=== PATIENT | male | born 1960 | race Caucasian/White ===

== ENCOUNTER → 2023-03-16 14:47 | Outpatient (REF) | payer OTHER, SELFPAY ==
--- NOTE | 2023-03-16 14:50 | CA_ITS ---
Transthoracic Echocardiogram Patient (Last, First, Middle): Jan Looney, Gender: Male Date of : 1960 Age: 62 Procedure Date: 03/16/2023 Procedure Type: Transthoracic Echocardiogram Location: OP Height: 187.96 cm Weight: 124.74 kg BSA: 2.49 m2 Heart Rate: 81 bpm BP: 130 / 90 mmHg Attractions Associate: PONCHO Referring MD: Torres Mcguire MD Symptoms: VIGIL Study Quality: Fair/Contrast ECG Rhythm: Sinus Conclusions: - The left ventricular systolic function is normal. The visually estimated ejection fraction is between 65-70%. - There is severely increased left ventricular wall thickness. - No obvious valvular pathology seen on this study. Findings Procedure Information Contrast agent, definity, is being given per protocol without apparent complications. Left Ventricle Normal left ventricular cavity size. There is severely increased left ventricular wall thickness. The left ventricular systolic function is normal. The visually estimated ejection fraction is between 65-70%. There is no evidence of regional wall motion abnormalities. Diastolic function is normal for age. Right Ventricle Mildly increased right ventricular cavity size. There is normal right ventricular systolic function. Atria The left atrium is mildly dilated. The right atrium is normal in size. Aortic Valve The aortic valve was not well visualized. There is mild calcification of the aortic valve. There is no aortic valve stenosis. There is no aortic valve regurgitation. Mitral Valve The mitral valve appears normal. There is trace mitral valve regurgitation. There is no mitral valve stenosis. Pulmonic Valve The pulmonic valve is likely normal. Tricuspid Valve Normal tricuspid valve structure. There is trace tricuspid valve regurgitation. Tricuspid regurgitation envelope is inadequate for calculation of right ventricular systolic pressure. Great Vessels The asc aorta is normal in size. Venous The inferior vena cava is mildly dilated and collapses greater than 50% with inspiration. Pericardium/Pleural There is no evidence of pericardial effusion. Prior Study Comparison Changes noted compared to prior study dated: 05/07/2015. Progression of LVH. Recommendations, Care & Conclusions No obvious valvular pathology seen on this study. Measurements 2D Linear Measurements IVSd: 1.22 0.6-0.9/0.6-1.0 cm LVIDd: 5.63 3.9-5.3/4.2-5.9 cm LVIDd Index: 2.26 2.4-3.2/2.2-3.1 cm/m2 LVIDs: 4.10 2.0-3.6 cm LVPWd: 1.02 0.7-1.1 cm LA Diam: 4.70 2.7-3.8/3.0-4.0 cm LAIDs Index: 1.89 1.5-2.3 cm/m2 LV Mass: 321.35 67-162/88-224 g LV Mass Index: 129.06 43-95/49-115 g/m2 LVOT Diam: 2.10 3.0+(-)1.3 cm 2D Systolic Function EF 4C: 75.10 >55% EF 2C: 75.00 >55% EF BiP: 74.90 >55% Mitral Valve MV Pk E: 0.71 MV PK A: 0.46 MV Decel Time: 141.00 E/A: 1.60 E'Lateral: 10.30 E'Medial: 8.70 E/E' Med: 8.20 E/E' Lat: 6.90 PHT: 41.00 MVA PHT: 5.37 Decel Christian: 5.04 Aortic Valve AoV Pk Jozef: 1.22 AoV Mn Jozef: 0.98 AoV VTI: 0.24 AoV Pk Grad: 6.00 Aov Mn Grad: 4.00 ANURAG Cont.VTI: 2.85 LVOT LVOT Pk Jozef: 1.17 LVOT Mn Jozef: 0.84 LVOT VTI: 0.20 LVOT Pk Grad: 5.00 LVOT Mn Grad: 3.00 LVOT Diam: 2.10 LVOT Area: 3.46 Diastolic Function MV Pk E: 0.71 MV Pk A: 0.46 E/A: 1.60 E'Medial: 8.70 E/E' Med: 8.20 E' Laterial: 10.30 E/E' Lat: 6.90 Right Ventricle TAPSE (mm): 20.80 TVS' Jozef: 14.40 Tricuspid Valve RA Press: 8.00 Great Vessels Aorta Sinus of Valsalva: 3.50 2.0-3.5 cm Ao Asc: 3.50 2.1-3.4 cm Pulmonary Valve PV Pk Jozef: 0.80 Peak PV Grad: 3.00 Updated in Other Vendor System with Status of Final Huber Bill MD electronically signed on 03/17/2023 9:53:57 AM with status of Final
== END ==
LOC: HO.CARD 14:47
PROVIDERS: PCP Internal Medicine; Visit Provider Internal Medicine
DX: R06.09 Other forms of dyspnea (principal); R60.0 Localized edema
CPT/HCPCS: 93306; Q9957

== ENCOUNTER 2023-09-14 14:12 | Outpatient (REF) | payer OTHER, SELFPAY ==
[2023-09-14 15:07] LABS: Appearance Urine Clear; Color Urine Yellow; Glucose Urine UA Negative (Negative); Leukocyte Esterase Urine Negative (Negative); Nitrite Urine Negative (Negative); PH 6.5 (5.0-9.0); Specific Gravity - Urine <= 1.005 (1.005-1.025); Urine Blood Negative (Negative); Urine Ketones Negative (Negative); Urine Protein Negative (Neg-Trace)
[2023-09-15 10:24] LABS: Free Prostate Spec Ag <0.1 ng/mL; Percent Free Prostate Spec Ag UNABLE TO CALCULATE % (calc) (>25); Prostate Specific Ag Total 0.6 ng/mL (< OR = 4.0)
== END 2023-09-14 14:13 | disposition home or self-care (01) ==
LOC: HO.CHCLDS 14:12
PROVIDERS: Visit Provider Internal Medicine
DX: R30.0 Dysuria (principal)
CPT/HCPCS: 36415; 81003; 84154

== ENCOUNTER 2023-10-19 14:34 | Outpatient (REF) | payer OTHER, SELFPAY ==
[2023-10-19 17:37] LABS: MANUAL DIFF FLAG NO
[2023-10-19 17:45] LABS: Basophils Percent Auto 0.9 % (0-2); Eosinophils Absolute Auto 0.1 X10*3/uL (0.0-0.4); Eosinophils Percent Auto 2.6 % (0-4); Hematocrit 40.8 % (42.0-52.0); Hemoglobin 13.5 g/dl (14.0-18.0); Imm Gran Abs Auto 0.01 X10*3/uL (0.00-0.03); Imm Gran Pct Auto 0.2 % (0.0-0.4); Lymphocytes Absolute Auto 1.5 X10*3/uL (1.2-4.9); Lymphocytes Percent Auto 32.8 % (20-40); Mean Corpuscular HGB Conc 33.1 g/dl (31.0-36.0); Mean Corpuscular Hemoglobin 29.7 pg (27.0-33.0); Mean Corpuscular Volume 89.7 fL (80.0-98.0); Mean Platelet Volume 10.7 fL (9.4-12.4); Monocytes Absolute Auto 0.2 X10*3/uL (0.1-1.2); Monocytes Percent Auto 5.2 % (2-11); Neutrophils Absolute Auto 2.7 x10*3/uL (2.0-8.3); Neutrophils Percent Auto 58.3 % (45-73); Platelet Count 204 X10*3/uL (160-400); Red Blood Count 4.55 X10*6/uL (4.60-5.80); Red Cell Distribution Width 12.3 % (11.0-16.0); White Blood Count 4.6 X10*3/uL (4.8-10.8)
[2023-10-19 18:01] LABS: Alanine Aminotransferase 17 U/L (0-40); Albumin Level 4.2 g/dL (3.5-5.0); Alkaline Phosphatase 76 U/L (39-117); Anion Gap 10 (12-20); Aspartate Amino Transferase 18 U/L (5-37); Bilirubin Total 0.8 mg/dL (0.0-1.0); Blood Urea Nitrogen 16 mg/dL (9-16); Calcium 9.6 mg/dL (8.4-10.2); Carbon Dioxide 29 mmol/L (22-29); Chloride 106 mmol/L (96-108); Estimated Glomerular Filt Rate > 60; Glucose Random 92 mg/dL (60-115); Magnesium 2.4 mg/dL (1.6-2.6); Potassium 4.1 mmol/L (3.3-5.1); Sodium 141 mmol/L (135-145); Total Protein 7.2 g/dL (6.5-8.0)
[2023-10-19 18:17] LABS: TSH reflex Free T4 0.82 uIU/mL (0.32-4.0)
== END 2023-10-19 14:35 | disposition home or self-care (01) ==
LOC: HO.CHCLDS 14:34
PROVIDERS: Visit Provider Family Medicine
DX: R94.31 Abnormal electrocardiogram [ECG] [EKG] (principal)
CPT/HCPCS: 36415; 80053; 83735; 84443; 85025

== ENCOUNTER → 2023-11-03 09:41 | Outpatient (REF) | payer OTHER, SELFPAY | LOC: HO.CARD 09:41 | PROVIDERS: PCP Internal Medicine; Visit Provider Family Medicine | DX: R94.31 Abnormal electrocardiogram [ECG] [EKG] (principal); I49.3 Ventricular premature depolarization; I48.91 Unspecified atrial fibrillation | CPT/HCPCS: 93225 ==

== ENCOUNTER → 2023-11-03 09:47 | Outpatient (BNV) | payer OTHER, SELFPAY | PROVIDERS: PCP Internal Medicine; Visit Provider Internal Medicine Cardiovascular Disease | DX: I48.91 Unspecified atrial fibrillation (principal) | CPT/HCPCS: 93227 ==

== ENCOUNTER 2023-11-04 14:01 | Outpatient (REF) | payer OTHER, SELFPAY ==
--- NOTE | ~2023-11-04 | XR_ITS ---
EXAMINATION: XR CHEST CLINICAL INFORMATION: Shortness of breath COMPARISON: Chest x-ray on 04/14/2015 TECHNIQUE: 2 views of the chest were obtained. FINDINGS: vascularity. LUNGS: Asymmetric flame-shaped density is seen in medial border of right upper lobe, contiguous with right lateral superior mediastinum, measuring 2.0 cm in vertical height, 1.7 cm in width. No pneumothorax is seen. BONES: Bony skeleton is intact. There is marked asymmetric thickening of the right first rib. XR/XR chest 2V IMPRESSION: Asymmetric flame-shaped density is seen in the medial border of right upper lobe, contiguous with right lateral superior mediastinum, measuring 2.0 cm in vertical height, 1.7 cm in width. This could represent focal airspace disease or mass lesion. If clinically indicated, further evaluation with contrast-enhanced CT scan of chest is recommended.
== END 2023-11-04 14:02 | disposition home or self-care (01) ==
LOC: HO.XRAY 14:01
PROVIDERS: Visit Provider Internal Medicine
DX: Z13.89 Encounter for screening for other disorder (principal)
CPT/HCPCS: 71046

== ENCOUNTER → 2023-11-19 14:00 | Outpatient (REF) | payer OTHER, SELFPAY ==
--- NOTE | 2023-11-19 14:02 | CA_ITS ---
Transthoracic Echocardiogram Patient (Last, First, Middle): Jan Looney, Gender: Male Date of : 1960 Age: 63 Procedure Date: 11/19/2023 Procedure Type: Transthoracic Echocardiogram Location: OP Height: 187.96 cm Weight: 120.2 kg BSA: 2.45 m2 Heart Rate: bpm BP: 128 / 80 mmHg Residency Program Coordinator: Referring MD: Mer Umaña MD Symptoms: R94.31 ABN EKG Study Quality: Adequate w contrast ECG Rhythm: Sinus Conclusions: - The left ventricular systolic function is normal. The calculated ejection fraction is 56% by biplane method. - There is moderately increased left ventricular wall thickness. - The basal inferolateral segment is akinetic. - No obvious valvular pathology seen on this study. Findings Procedure Information Contrast agent, definity, is being given per protocol without apparent complications. Left Ventricle Normal left ventricular cavity size. There is moderately increased left ventricular wall thickness. The left ventricular systolic function is normal. The calculated ejection fraction is 56% by biplane method. There is evidence of regional wall motion abnormalities. Diastolic function is normal for age. Wall Motion Rest Echo Findings The basal inferolateral segment is akinetic. Right Ventricle Mildly increased right ventricular cavity size. There is normal right ventricular systolic function. Atria Both atria are normal in size. Aortic Valve The aortic valve was not well visualized. There is mild calcification of the aortic valve. There is no aortic valve stenosis. There is no aortic valve regurgitation. Mitral Valve The mitral valve appears normal. There is no mitral valve regurgitation. There is no mitral valve stenosis. Pulmonic Valve The pulmonic valve is likely normal. Tricuspid Valve Normal tricuspid valve structure. There is trace tricuspid valve regurgitation. There is no evidence of pulmonary hypertension. Great Vessels The asc aorta is normal in size. Venous The inferior vena cava is mildly dilated and collapses less than 50% with inspiration. Pericardium/Pleural There is no evidence of pericardial effusion. Prior Study Comparison No significant change compared to prior study dated: 03/16/2023. Images reviewed. Recommendations, Care & Conclusions No obvious valvular pathology seen on this study. Measurements 2D Linear Measurements IVSd: 1.46 0.6-0.9/0.6-1.0 cm LVIDd: 5.22 3.9-5.3/4.2-5.9 cm LVIDd Index: 2.13 2.4-3.2/2.2-3.1 cm/m2 LVIDs: 3.70 2.0-3.6 cm LVPWd: 1.47 0.7-1.1 cm LA Diam: 4.50 2.7-3.8/3.0-4.0 cm LAIDs Index: 1.84 1.5-2.3 cm/m2 LV Mass: 415.07 67-162/88-224 g LV Mass Index: 169.42 43-95/49-115 g/m2 LVOT Diam: 2.20 3.0+(-)1.3 cm 2D Systolic Function EF 4C: 66.50 >55% EF 2C: 40.20 >55% EF BiP: 55.50 >55% Mitral Valve MV Pk E: 0.71 MV PK A: 0.45 MV Decel Time: 150.00 E/A: 1.60 E'Lateral: 13.20 E'Medial: 6.09 E/E' Med: 11.60 E/E' Lat: 5.40 PHT: 44.00 MVA PHT: 5.00 Decel [place]: 4.70 Aortic Valve AoV Pk Jozef: 1.29 AoV Mn Jozef: 0.86 AoV VTI: 0.22 AoV Pk Grad: 7.00 Aov Mn Grad: 4.00 ANURAG Cont.VTI: 3.50 LVOT LVOT Pk Jozef: 1.25 LVOT Mn Jozef: 0.77 LVOT VTI: 0.20 LVOT Pk Grad: 6.00 LVOT Mn Grad: 3.00 LVOT Diam: 2.20 LVOT Area: 3.80 Diastolic Function MV Pk E: 0.71 MV Pk A: 0.45 E/A: 1.60 E'Medial: 6.09 E/E' Med: 11.60 E' Laterial: 13.20 E/E' Lat: 5.40 Right Ventricle TAPSE (mm): 28.10 TVS' Jozef: 12.60 Tricuspid Valve TR Pk Jozef: 1.94 TR Pk Grad: 15.00 RA Press: 8.00 RVSP: 23.00 Great Vessels Aorta Sinus of Valsalva: 3.20 2.0-3.5 cm Ao Asc: 3.00 2.1-3.4 cm Pulmonary Valve PV Pk Jozef: 1.02 Peak PV Grad: 4.00 Updated in Other Vendor System with Status of Final Huber Bill MD electronically signed on 11/20/2023 2:29:11 PM with status of Final
== END ==
LOC: HO.CARD 14:00
PROVIDERS: PCP Internal Medicine; Visit Provider Family Medicine
DX: R94.31 Abnormal electrocardiogram [ECG] [EKG] (principal)
CPT/HCPCS: 93306; Q9957

== ENCOUNTER → 2023-11-19 14:02 | Outpatient (BNV) | payer OTHER, SELFPAY | PROVIDERS: PCP Internal Medicine; Visit Provider Internal Medicine | DX: I35.8 Other nonrheumatic aortic valve disorders (principal); R94.31 Abnormal electrocardiogram [ECG] [EKG] | CPT/HCPCS: 93306 ==

== ENCOUNTER 2023-12-15 11:18 | Outpatient (REF) | payer OTHER, SELFPAY ==
[2023-12-15 14:46] LABS: Blood Urea Nitrogen 17 mg/dL (9-16); Estimated Glomerular Filt Rate > 60
== END 2023-12-15 11:19 | disposition home or self-care (01) ==
LOC: HO.CHCLDS 11:18
PROVIDERS: Visit Provider Internal Medicine
DX: C20 Malignant neoplasm of rectum (principal)
CPT/HCPCS: 36415; 82565; 84520

== ENCOUNTER 2024-01-26 13:36 | Outpatient (AMB) | payer OTHER, SELFPAY ==
[2024-01-26 14:14] VITALS: BP 136/74; PULSE 115; BMI 34.8
--- NOTE | 2024-01-26 14:14 | A.OFFVIS_ITS ---
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 Intake Note: NPV w/ EKG Pure Culture Operator Required: Yes Pure Culture Operator Language: Time Study Observer Name: Antonella [id number] Accompanied by: Self / Same As Patient Allergies No Known Allergies [No Known Allergies*] Allergy (Verified 01/26/24 14:15) Medication List - Last Reconciled 01/26/24 by Huber Bill MD acetaminophen ER (Tylenol 8 Hour) 650 mg PO Q12H aspirin 81 mg PO DAILY atorvastatin 20 mg PO DAILY diclofenac sodium 1% (Voltaren) 2 grams topical QID ergocalciferol (vitamin D2) 1 caps weekly morphine ER 60 mg PO BID omeprazole 40 mg PO DAILY oxycodone 10 mg PO TID PRN promethazine 25 mg PO Q4-6H PRN sennosides 8.6 mg PO BEDTIME sertraline (Zoloft) 50 mg PO DAILY HPI HPI Comments History of Present Illness Details Jan is here for consultation regarding palpitations. He states that for the last few months he has been noticing some heart fluttering. He denies any history of coronary disease myocardial infarction or cardiomyopathy. However, according to PCP note, a prior echocardiogram from 2018 had shown wall motion abnormalities in the inferior/lateral wall. Otherwise, patient himself denies any clear anginal-type symptoms. PFSH Surgical History H/O hemicolectomy Hx of colostomy Family History Mother HTN (hypertension) Social History Alcohol intake: never Review of Systems Const Denies chills, Denies daytime sleepiness, Denies fatigue, Denies fever(s), Denies frequent falls, Denies night sweats, Denies snoring, Denies weakness, Denies weight gain and Denies weight loss Eyes Denies loss of vision ENT Denies dizziness and Denies hearing loss Card Denies chest pain, Denies chest pain with activity, Denies syncope, Denies rapid heart rate, Denies edema, Denies claudication, Denies leg edema, Denies lightheadedness, Denies palpitations, Denies dyspnea, Denies dyspnea on exertion and Denies orthopnea Resp Denies cough, Denies excessive phlegm production, Denies dyspnea, Denies dyspnea on exertion, Denies snoring and Denies wheezing GI Denies abdominal pain, Denies hematochezia, Denies change in bowel habits, Denies change in stool character, Denies heartburn, Denies nausea and Denies vomiting Denies hematuria, Denies dysuria and Denies urinary frequency Musc Denies arthralgias, Denies muscle weakness, Denies numbness and Denies tingling Skin/Breast Denies nail changes and Denies rash Neuro Denies Abnormal speech present, Denies dizziness, Denies syncope, Denies frequent falls, Denies loss of vision, Denies memory loss, Denies numbness, Denies tingling and Denies weakness Psych Denies depression and Denies memory loss Endo Denies fatigue and Denies palpitations Aller/Immun Denies wheezing Physical Exam Vital Signs: Last Vital Signs Pulse 115 H 01/26/24 14:14 BP 136/74 01/26/24 14:14 BMI result Body Mass Index 34.8 Const General: comfortable and no acute distress Orientation/consciousness: patient oriented x3 HEENT Other: Unremarkable Head: Yes normal to inspection Neck Neck: Yes normal visual inspection Chest Chest palpation & inspection: normal inspection of the chest Resp Auscultation: clear to auscultation bilaterally Cardio Palpation: normal PMI Heart sounds: S1 normal heart sound present, S2 normal heart sound present, no gallops, no murmurs and no rubs GI Palpation (GI): Soft to palpation Back/Spine/Pelvis Other: unremarkable Skin General skin exam: no rashes or lesions noted Neuro General: patient oriented x3 Speech: No Abnormal speech present Extrem General: Yes normal to inspection Psych Mental Status: mental status grossly normal Office Procedures EKG Details: EKG shows probably atrial flutter at a rate of 115/Min. Atrial tachycardia is also possible. [id number], Complete Assessment & Plan Assessment & Plan (1) Atrial flutter with rapid ventricular response: Code(s): I48.92 - Unspecified atrial flutter Plan Per PCP note, inferior/lateral wall hypokinesis on echocardiogram from 2018. Not clear where that was performed. Currently, it seems that he is in atrial flutter with rapid rate. Less likely atrial tachycardia but still possible. In the EKG that has been faxed from PCP, again possible atrial flutter but difficult to see due to image quality. We can start him on some beta-blockers. Also start Eliquis. We will get an echocardiogram as well as a Holter monitor. Possibly cardioversion in the future. Plan discussed with patient using golf club head former and he agrees. Orders: Orders CA echo transthoracic complete Today I48.92 - Unspecified atrial flutter ECG 3 day holter monitor Today I48.92 - Unspecified atrial flutter, R00.2 - Palpitations Medications: New metoprolol succinate ER (Toprol XL) 50 mg PO DAILY 90 tabs 3RF 90 days I48.92 - Unspecified atrial flutter apixaban (Eliquis) 5 mg PO BID 180 tabs 3RF 90 days I48.92 - Unspecified atrial flutter Coding Level of Care Code New Pt Level 4 (31925) Diagnoses Atrial flutter with rapid ventricular response I48.92 CPT Codes EKG - CPT: 15829-[id number], Complete ([id number])
== END 2024-01-26 14:34 | disposition home or self-care (01) ==
PROVIDERS: PCP Internal Medicine; Visit Provider Internal Medicine
DX: I48.92 Unspecified atrial flutter (principal)
CPT/HCPCS: 93010; 99214

== ENCOUNTER → 2024-01-26 13:36 | Outpatient (BNVA) | payer OTHER, SELFPAY | PROVIDERS: PCP Internal Medicine; Visit Provider Internal Medicine | DX: R00.2 Palpitations (principal); I48.92 Unspecified atrial flutter | CPT/HCPCS: 93005; 99212 ==

== ENCOUNTER 2024-02-29 14:13 | Outpatient (AMB) | payer OTHER, SELFPAY ==
--- NOTE | 2024-02-29 14:22 | MHC.OFFVIS ---
Vital Signs 02/29/24 14:23 Height 6 ft 2 in Weight 266 lb 12.149 oz BMI 34.2 BP 100/62 Blood Pressure Location Lt brachial Position Sitting Pulse 74 Pulse Source Pulse Oximeter Intake Visit Reasons: 4 wk f/up holter/ echo Splicing Machine Operator Automatic Required: Yes Splicing Machine Operator Automatic Language: Supervisor Computer Operations Name: [email or web address] [id number] Allergies No Known Allergies [No Known Allergies*] Allergy (Verified 02/29/24 14:26) Medication List - Last Reconciled 02/29/24 by Darlene Hernández NP-C acetaminophen ER (Tylenol 8 Hour) 650 mg PO Q12H apixaban (Eliquis) 5 mg PO BID 90 days atorvastatin 20 mg PO DAILY diclofenac sodium 1% (Voltaren) 2 grams topical QID ergocalciferol (vitamin D2) 1 caps weekly metoprolol succinate ER (Toprol XL) 50 mg PO DAILY 90 days morphine ER 60 mg PO BID omeprazole 40 mg PO DAILY oxycodone 30 mg PO Q8H PRN promethazine 25 mg PO Q4-6H PRN sennosides 8.6 mg PO BEDTIME sertraline (Zoloft) 50 mg PO DAILY HPI HPI 4 wk f/up holter/ echo: Details: Jan is a 63-year-old male with past medical history of obesity, hyperlipidemia, newer finding of atrial flutter who recently had an echocardiogram and Holter monitor and now presents for follow-up. Today he reports that he continues to have shortness of breath with activity. His breathing is comfortable at rest. No PND, orthopnea or edema. No chest discomfort at rest or with activity. He has not clearly feeling heart palpitations. No lightheadedness, presyncope, syncope, falls. Taking meds as directed. He has been taking the anticoagulation uninterrupted since it was started 1 month ago. [facility] Surgical History H/O hemicolectomy Hx of colostomy Family History Mother HTN (hypertension) Social History Alcohol intake: never Review of Systems Const All systems reviewed & are unremarkable except as noted in HPI and below ENT Denies dizziness Card Denies chest pain, Denies chest pain at rest, Denies chest pain with activity, Denies rapid heart rate, Denies pedal edema, Denies edema, Denies leg edema, Denies lightheadedness, Denies palpitations, Reports dyspnea, Reports dyspnea on exertion and Denies orthopnea Resp Denies cough, Reports dyspnea and Reports dyspnea on exertion GI Denies hematochezia and Denies change in stool character Musc Denies abnormal gait, Denies limited range of motion, Denies muscle cramps, Denies muscle weakness, Denies numbness, Denies radiating pain into limb, Denies stiffness and Denies tingling Neuro Denies abnormal gait, Denies dizziness, Denies numbness and Denies tingling Endo Denies palpitations Physical Exam Vital Signs: Last Vital Signs Pulse 54 02/29/24 14:23 BP 100/62 02/29/24 14:23 BMI result Body Mass Index 34.2 Const General: cooperative, healthy appearing, comfortable and no acute distress Orientation/consciousness: patient oriented x3 Neck Neck: Yes normal visual inspection and Yes no JVD Resp Effort & Inspection: normal respiratory effort Auscultation: clear to auscultation bilaterally, no rales, no rhonchi and no wheezes Cardio Jugular venous distension: no JVD Rate: regular rate Rhythm: abnormal rhythm Heart sounds: S1 normal heart sound present, S2 normal heart sound present, no murmurs and no rubs Neuro General: patient oriented x3 Extrem General: Yes normal to inspection and No no pedal edema Psych Appearance: grossly normal Mental Status: mental status grossly normal Speech and movement: Normal speech and movement present Office Procedures EKG Details: Today, read by me, atrial flutter, right axis deviation, ST and T-wave abnormality inferior lateral leads, rate 74, QTC 472 milliseconds [id number], Complete Assessment & Plan Assessment & Plan (1) Atrial flutter: Code(s): I48.92 - Unspecified atrial flutter Category: Medical Plan: Newer finding of atrial flutter. Echocardiogram done 11/19/2023 showed EF 56%, moderate increase in the LV wall thickness, basal inferior lateral akinetic. Has no known history of CAD or reported hypertension. A Holter monitor was done on 11/03/2023 showing atrial fibrillation with average heart rate 103, occasional PVCs. He was not initially started on anticoagulation likely due to low CHADS-VASc score, however it was started last month when he was seen by Dr. Bill. EKG at that time showed atrial flutter with RVR. He was started on metoprolol for heart rate control. He will need an ischemic evaluation going forward. Today he reports that he has been experiencing shortness of breath with activity. He does not appear in heart failure on examination. Pulse is mildly irregular to auscultation. EKG done today showing atrial flutter with variable AV block, rate 74. Will have him continue on metoprolol XL 50 mg daily. Continue Eliquis without interruption. Need for cardioversion reviewed with him. Procedure, risks of the procedure reviewed and he is agreeable to proceed. Will arrange for cardioversion this week with Dr. Bill. Will order nuclear stress test to evaluate for ischemia to be done in approximately 2 weeks. Cardiology for office visit 1 month, sooner if needed. (2) LVH (left ventricular hypertrophy): Code(s): I51.7 - Cardiomegaly Category: Medical Plan: Noted on echocardiogram. No reported history of hypertension. Patient does have moderate obesity with BMI 34 (3) Shortness of breath: Code(s): R06.02 - Shortness of breath Category: Medical Plan: Symptom of shortness of breath with activity which is newer for him and likely related to his atrial flutter rhythm Plan Time spent on chart review, documentation, interview and assessment Orders: Orders Cardioversion 2 Days I48.92 - Unspecified atrial flutter NM cardiolite stress test 2 Weeks I48.92 - Unspecified atrial flutter, I51.7 - Cardiomegaly CA stress test 2 Weeks I48.92 - Unspecified atrial flutter, I51.7 - Cardiomegaly Coding Level of Care Code Est Pt Level 4 (09393) Diagnoses Atrial flutter I48.92 LVH (left ventricular hypertrophy) I51.7 Shortness of breath R06.02 CPT Codes EKG - CPT: 63485-[id number], Complete ([id number]) Time Spent (min) 30
[2024-02-29 14:23] VITALS: BP 100/62; PULSE 74; BMI 34.2
== END 2024-02-29 15:22 | disposition home or self-care (01) ==
PROVIDERS: PCP Internal Medicine; Visit Provider Nurse Practitioner Family
DX: I48.92 Unspecified atrial flutter (principal); I51.7 Cardiomegaly; R06.02 Shortness of breath
CPT/HCPCS: 93010; 99214

== ENCOUNTER → 2024-03-02 11:33 | Outpatient (BNV) | payer OTHER, SELFPAY | PROVIDERS: Admitting Provider Internal Medicine Critical Care Medicine; PCP Internal Medicine; Visit Provider Internal Medicine | DX: I49.3 Ventricular premature depolarization (principal) | CPT/HCPCS: 93010 ==

== ENCOUNTER 2024-03-02 12:47 | Inpatient (IN) | payer OTHER, SELFPAY ==
--- NOTE | 2024-03-01 09:04 | HO.ANESPROP2 ---
Documented by User: Alyssa Crenshaw NP 03/01/24 09:10 HPI - Anesthesia Eval Consult details Narrative: 63yo M for Cardioversion Eliquis for afib PMFSH Active Problems Active Problems: All Active Problems Shortness of breath (Acute) LVH (left ventricular hypertrophy) (Acute) Atrial flutter (Acute) Atrial flutter with rapid ventricular response (Acute) Polyarthralgia (Acute) Past Medical History Medical History Polyarthralgia LVH (left ventricular hypertrophy) Atrial flutter Family History Family History Mother HTN (hypertension) Surgical History Surgical History H/O hemicolectomy Hx of colostomy Social History Social History Alcohol intake: never Patient Tobacco Use Status: Never used Tobacco Use of substances other than those prescribed or required for medical reasons: No Are you DNR?: No Advance Directives: No Advance Directives Information Provided: Yes Meds Allergies Allergy/AdvReac Type Severity Reaction Status Date / Time No Known Allergies Allergy Verified 03/02/24 09:42 [No Known Allergies*] Home Medications ?Medication ?Instructions ?Recorded ?Confirmed ?Last Taken ?Type atorvastatin 20 mg tablet 20 mg PO DAILY 10/08/20 03/02/24 Unknown History diclofenac sodium 1 % topical gel 2 g topical QID 10/08/20 02/29/24 Unknown History (Voltaren) ergocalciferol (vitamin D2) 50,000 unit PO 10/08/20 02/29/24 03/02/24 07:00 History unit tablet morphine 60 mg capsule,extended 60 mg PO BID 10/08/20 03/02/24 03/02/24 07:00 History release 24 hr multiphase promethazine 25 mg tablet 25 mg PO Q4-6H PRN Nausea 10/08/20 03/02/24 Unknown History sennosides 8.6 mg tablet 8.6 mg PO BEDTIME 10/08/20 03/02/24 Unknown History sertraline 50 mg tablet (Zoloft) 50 mg PO DAILY 10/08/20 03/02/24 Unknown History omeprazole 20 mg capsule,delayed 40 mg PO DAILY 01/26/24 03/02/24 03/02/24 07:00 History release oxycodone 30 mg tablet 30 mg PO Q8H PRN pain 02/29/24 03/02/24 03/02/24 07:00 History Exam Pertinent Lab Results Pertinent Lab Results: Laboratory Tests 10/19/23 12/15/23 14:36 11:20 WBC 4.6 L Hgb 13.5 L Hct 40.8 L Plt Count 204 Sodium 141 Potassium 4.1 Chloride 106 Carbon Dioxide 29 BUN 17 H Creatinine 1.20 Narrative Narrative: ECHO 11/2023 Conclusions: - The left ventricular systolic function is normal. The calculated ejection fraction is 56% by biplane method. - There is moderately increased left ventricular wall thickness. - The basal inferolateral segment is akinetic. - No obvious valvular pathology seen on this study. EKG 12/2023 probably atrial flutter at a rate of 115/Min. Atrial tachycardia is also possible Assessment and Plan Assessment Anesthesia Assessment: Chart Reviewed Documented by User: Maggie Trujillo MD 03/02/24 10:45 PMFSH Past Medical History Medical History Polyarthralgia LVH (left ventricular hypertrophy) Atrial flutter Family History Family History Mother HTN (hypertension) Family history of problems with anesthesia: No Surgical History Surgical History H/O hemicolectomy Hx of colostomy History of Problems with Anesthesia: No Social History Social History Alcohol intake: never Patient Tobacco Use Status: Never used Tobacco Use of substances other than those prescribed or required for medical reasons: No Are you DNR?: No Advance Directives: No Advance Directives Information Provided: Yes Meds Allergies Allergy/AdvReac Type Severity Reaction Status Date / Time No Known Allergies Allergy Verified 03/02/24 09:42 [No Known Allergies*] Home Medications ?Medication ?Instructions ?Recorded ?Confirmed ?Last Taken ?Type atorvastatin 20 mg tablet 20 mg PO DAILY 10/08/20 03/02/24 Unknown History diclofenac sodium 1 % topical gel 2 g topical QID 10/08/20 02/29/24 Unknown History (Voltaren) ergocalciferol (vitamin D2) 50,000 unit PO 10/08/20 02/29/24 03/02/24 07:00 History unit tablet morphine 60 mg capsule,extended 60 mg PO BID 10/08/20 03/02/24 03/02/24 07:00 History release 24 hr multiphase promethazine 25 mg tablet 25 mg PO Q4-6H PRN Nausea 10/08/20 03/02/24 Unknown History sennosides 8.6 mg tablet 8.6 mg PO BEDTIME 10/08/20 03/02/24 Unknown History sertraline 50 mg tablet (Zoloft) 50 mg PO DAILY 10/08/20 03/02/24 Unknown History omeprazole 20 mg capsule,delayed 40 mg PO DAILY 01/26/24 03/02/24 03/02/24 07:00 History release oxycodone 30 mg tablet 30 mg PO Q8H PRN pain 02/29/24 03/02/24 03/02/24 07:00 History Exam Airway Mallampati Class: III TM Dist: >3cm Neck ROM: Limited Heart: rrr Lungs: cta Assessment and Plan Assessment Anesthesia Assessment: Anesthesia Plan Discussed Final Anesthetic Review Family History of Problems with Anesthesia: No History of Problems with Anesthesia: No NPO: Yes ASA Class: III Final Preanesthetic Review: No Changes in Pt Med Stat, Meds/Allgs Chart Reviewed, Consent Obtained/Reviewed and Anes Risks/Benef Reviewed Patient Risk: Intermediate Procedure Risk: Low Anesthetic Plan Anesthetic Plan: MAC: Disposition: Standard PACU
[2024-03-02] VITALS (26 sets, daily range): BP systolic 94–154; BP diastolic 48–98; PULSE 6–85; RESP 11–19; TEMP 36.1–36.9; O2SAT 93–100; BMI 33.6
--- NOTE | 2024-03-02 | ECG_ITS ---
Test Reason : qtc check Blood Pressure : / mmHG Vent. Rate : 035 BPM Atrial Rate : 000 BPM P-R Int : 000 ms QRS Dur : 122 ms QT Int : 480 ms P-R-T Axes : 000 083 064 degrees QTc Int : 366 ms Idioventricular rhythm with occasional Premature ventricular complexes with ventricular escape complexes Left ventricular hypertrophy with QRS widening and repolarization abnormality ( [place] product ) Abnormal ECG When compared with ECG of 02-MAR-2024 11:32, Idioventricular rhythm has replaced Sinus rhythm Vent. rate has decreased BY 19 BPM Referred By: Tona Ghotra Electronically Signed By:LUCITA MACHADO
--- NOTE | ~2024-03-02 | XR_ITS ---
EXAMINATION: XR CHEST CLINICAL INFORMATION: Pacemaker. COMPARISON: 11/04/2023. TECHNIQUE: Frontal view of the chest was obtained. FINDINGS: Again seen is cardiomegaly. Since the prior study, a new left chest wall dual-lead pacemaker has been placed with one lead overlying the region of the right atria, the other overlying the region of the right ventricular apex. No evidence of CHF. No pneumothoraces. Previously questioned right upper lobe mass/infiltrate abutting the mediastinum is not appreciated on the current exam. XR/XR chest 1V IMPRESSION: New left chest wall pacemaker with leads in good position. No pneumothorax.
--- NOTE | ~2024-03-02 | FL_ITS ---
EXAMINATION: XR FLUOROSCOPY WITH IMAGES CLINICAL INFORMATION: Pacemaker insertion. COMPARISON: None available. TECHNIQUE: Fluoroscopy Supervised By: Dr. Umana. Fluoroscopy Time: 6:10 min. Cumulative Dose: 72.375 mGy. DAP: 31.482 Gy-cm2. Images: 1. FINDINGS: Single image shows 2 pacemaker leads, one in the right atria and the other overlying the right ventricle. FL/FL guidance in OR IMPRESSION: Fluoroscopy and spot films provided during pacemaker insertion.
[2024-03-02] MEDS: Lactated Ringers 1,000 ML 100 ML IVCONT (10:44)
--- NOTE | 2024-03-02 11:02 | HO.CARDIVERS ---
Cardioversion Procedure Note Cardioversion Date of Procedure: 03/02/2024 Indication for Procedure: Atrial flutter with rapid ventricular rate Pre-Op Diagnosis: Atrial flutter with rapid ventricular rate Post-Op Diagnosis: Sinus bradycardia History: Symptomatic atrial flutter with rapid ventricular rate. Consent: Informed consent obtained. Procedure: After informed consent was obtained, patient was taken to the PACU. The patient was then positioned appropriately. The cardioversion pads were placed in anteroposterior position. Once under anesthesia, 120 joules of synchronized shock was administered. There was initial period of asystole for several seconds after which the patient went to sinus bradycardia. He went back and forth between sinus bradycardia and normal sinus rhythm. He received glycopyrrolate as well as atropine through anesthesia. Hemodynamically stable otherwise. Complications: Asystole/bradycardia as above. Impression: Successful cardioversion out of atrial flutter but having sinus bradycardia Recommendations: Admission to ICU for monitoring. May need permanent pacemaker.
--- NOTE | 2024-03-02 11:11 | MHC.SHP ---
Pre-Procedural Eval Section A - 24 Hr Update-Section A only Date of Service: 03/02/24 The patient is an INPATIENT: No Section B - Complete if H&P > 30 days Chief Complaint: Paroxysmal atrial fibrillation Allergies: Allergies Allergy/AdvReac Type Severity Reaction Status Date / Time No Known Allergies Allergy Verified 03/02/24 09:42 [No Known Allergies*] Plan I have reviewed the history and physical and performed a pertinent physical examination on my patient. No changes have occurred unless specified. Time Spent With Patient Time: Total time managing care of this patient today ____ minutes.
--- NOTE | 2024-03-02 11:33 | ECG_ITS ---
Test Reason : post cardioversion Blood Pressure : / mmHG Vent. Rate : 054 BPM Atrial Rate : 054 BPM P-R Int : 168 ms QRS Dur : 118 ms QT Int : 474 ms P-R-T Axes : 046 078 122 degrees QTc Int : 449 ms Sinus bradycardia with marked sinus arrhythmia Left ventricular hypertrophy with QRS widening and repolarization abnormality ( [place] product ) Abnormal ECG When compared with ECG of 14-APR-2015 18:18, Incomplete right bundle branch block is no longer Present Referred By: Lucita Machado Electronically Signed By:LUCITA MACHADO
--- NOTE | 2024-03-02 12:51 | P.HPCC_ITS ---
History of Present Illness Date of Service: 03/02/24 Chief Complaint: Bradycardia Patient is a 63 Y M with hyperlipidemia, obesity, recent diagnosis of atrial flutter, presenting on 03/02 for elective ablation; in PACU, patient developed SVT, for which patient synchronized cardioverted successfully, however, devel oped intermittent bradycardia to 20s, with improvement to 50s w/o intervention; patient admitted to ICU for closer monitoring, possible pacemaker Review of Systems Review of Systems: Yes all other systems are reviewed and are negative [facility] Past Medical History Medical History Polyarthralgia LVH (left ventricular hypertrophy) Atrial flutter Family History Family History Mother HTN (hypertension) Surgical History Surgical History H/O hemicolectomy Hx of colostomy Social History Social History Alcohol intake: never Patient Tobacco Use Status: Never used Tobacco Use of substances other than those prescribed or required for medical reasons: No Are you DNR?: No Advance Directives: No Advance Directives Information Provided: Yes Meds Allergies Allergy/AdvReac Type Severity Reaction Status Date / Time No Known Allergies Allergy Verified 03/02/24 09:42 [No Known Allergies*] Active Medications: Current Medications Lactated Ringer's (Lr) 1,000 mls @ 100 mls/hr IVCONT .Q10H AGUSTIN Last Infusion: 03/02/24 12:32 Dose: Infused Home Medications ?Medication ?Instructions ?Recorded ?Confirmed ?Last Taken ?Type atorvastatin 20 mg tablet 20 mg PO DAILY 10/08/20 03/02/24 Unknown History diclofenac sodium 1 % topical gel 2 g topical QID 10/08/20 02/29/24 Unknown History (Voltaren) ergocalciferol (vitamin D2) 50,000 unit PO 10/08/20 02/29/24 03/02/24 07:00 History unit tablet morphine 60 mg capsule,extended 60 mg PO BID 10/08/20 03/02/24 03/02/24 07:00 History release 24 hr multiphase promethazine 25 mg tablet 25 mg PO Q4-6H PRN Nausea 10/08/20 03/02/24 Unknown History sennosides 8.6 mg tablet 8.6 mg PO BEDTIME 10/08/20 03/02/24 Unknown History sertraline 50 mg tablet (Zoloft) 50 mg PO DAILY 10/08/20 03/02/24 Unknown History omeprazole 20 mg capsule,delayed 40 mg PO DAILY 01/26/24 03/02/24 03/02/24 07:00 History release oxycodone 30 mg tablet 30 mg PO Q8H PRN pain 02/29/24 03/02/24 03/02/24 07:00 History Physical Exam Vital Signs: Vital Signs: Last Vital Signs Temp 97 F 03/02/24 11:30 Pulse 61 03/02/24 12:45 Resp 16 03/02/24 12:45 BP 127/63 03/02/24 12:45 Pulse Ox 100 03/02/24 12:45 O2 Del Method Room Air 03/02/24 12:45 O2 Flow Rate 2 03/02/24 11:45 BMI result Body Mass Index 33.6 Const: General: healthy appearing, comfortable, no acute distress, well developed, alert, awake and Physically active Orientation/consciousness: patient oriented x3 HEENT: Head: Yes normal to inspection, Yes normocephalic and Yes atraumatic Eyes: General: appearance normal, both eyes and all related structures Neck: Neck: Yes normal visual inspection, Yes full ROM, Yes no meningeal signs and Yes supple Chest: Chest palpation & inspection: normal inspection of the chest Resp: Other: no appreciable rales, rhonchi, wheezing Cardio: Rate: bradycardic Rhythm: regular rhythm GI: Inspection: Yes normal to inspection, No Abdominal wall edema and No distended Palpation (GI): Soft to palpation, not firm, nontender, no guarding and not rigid Skin: General skin exam: no rashes or lesions noted Neuro: General: patient oriented x3, tone normal, moves all extremities, no meningeal signs and no focal motor deficits Extrem: General: Yes normal to inspection, Yes full ROM, Yes capillary refill normal and Yes no clubbing, cyanosis or edema Psych: Other: appears agitated, though verbally re-directable Assessment and Plan (1) Atrial flutter with rapid ventricular response: Status: Acute (2) Bradycardia: Status: Acute (3) Hyperlipidemia: Status: Acute Plan Patient is a 63 Y M with hyperlipidemia, obesity, recent diagnosis of atrial flutter, presenting on 03/02 for elective ablation; in PACU, patient developed SVT, for which patient synchronized cardioverted successfully, however, developed intermittent bradycardia to 20s, with improvement to 50s w/o intervention; patient admitted to ICU for closer monitoring, possible pacemaker N: no acute issues CV: atrial flutter s/p abation, c/b SVT, now intermittent bradycardia; to continue to closely monitor; epinephrine vs dopamine gtt, atropine as needed; to appreciate cardiology recommnedations; possible pacemaker in near future; to avoid AV lisa blockers R: no acute issues GI: NPO for procedural planning : no acute issues; follow-up BMP H: atrial flutter, on apixaban; no acute issues; follow-up CBC ID: no acute issues E: no acute issues P: no acute issues
[2024-03-02] MEDS: DOPamine HCL/D5W 400 MG/250 ML PLAST..BAG 22.28 MG IVCONT (14:53)
[2024-03-02] MEDS: Calcium Gluconate/NaCl,Iso-Osm 1 GM/50 ML PLAST..BAG IV (15:16)
--- NOTE | 2024-03-02 15:22 | PM.EVENT ---
Event Note Date of Service: 03/02/24 Event Note: of note, extensive conversation had with patient regarding the necessity of permanent pacemaker; despite multiple conversations with multiple physicians and with an charger operator, patient continues to decline permanent pacemaker, acknowledging he may from his bradycardia Time Spent With Patient Time: Total time managing care of this patient today ____ minutes.
--- NOTE | 2024-03-02 15:31 | PM.CNCAR ---
History of Present Illness History of Present Illness Date of Service: 03/02/24 Chief complaint: bradycardia Narrative: This is a cardiology consultation regarding bradycardia after cardioversion. Patient initially came for an elective cardioversion. He was having atrial flutter with rapid rate and was recently seen in the clinic. As he was having palpitations, he underwent elective cardioversion today after being on appropriate anticoagulation. He was also on pfrv-[id number]-Aradvf-XL 50 mg daily. After the cardioversion, he had a period of asystole for several seconds. After that, he went into sinus bradycardia. He was intermittently bradycardic for a while but then going into sinus rhythm but again getting bradycardic. After few of these episodes, he got glycopyrrolate as well as atropine by anesthesia. Once he was fully awake, he wanted to sign out against medical advice. Multiple providers including myself, the supervisory examiner as well as Anesthesiology Dr. Ortiz where the bedside. He initially refused to stay and was going to sign out against medical advice but then decided to accept the advice and stay. permastone mechanic was used. He was admitted to the ICU. Currently, he is in the ICU and seems fairly comfortable. He states as if his heart is pumping a lot. That could be from sinus bradycardia and high stroke volume. He is also on dopamine drip at this time. Review of Systems Review of Systems: Yes all other systems are reviewed and are negative Constitutional: Constitutional: Reports as per HPI and Reports no additional constitutional complaints Eyes: Eyes: Reports as per HPI and Denies no additional eye complaints ENT: Denies system reviewed and no additional complaints, except as documented and Reports as per HPI Cardiovascular: Cardiovascular: Reports as per HPI, Reports no additional cardiovascular complaints, Denies acrocyanosis, Denies cool extremities, Denies chest pain, Denies leg edema, Denies lightheadedness, Denies palpitations and Denies dyspnea Respiratory: Respiratory: Reports as per HPI, Denies no additional respiratory complaints and Denies dyspnea Gastrointestinal: Gastrointestinal: Reports as per HPI and Denies no additional gastrointestinal complaints Genitourinary: Genitourinary: Reports no additional male genitourinary complaints and Reports as per HPI Musculoskeletal: Musculoskeletal: Reports no additional musculoskeletal complaints and Reports as per HPI Integumentary/Breasts: Skin/Breast: Reports system reviewed and no additional complaints, except as docu Neurologic: Reports system reviewed and no additional complaints, except as documented and Reports as per HPI Psychiatric: Psychiatric: Reports no additional psychiatric complaints and Reports as per HPI Endocrine: Endocrine: Reports no additional endocrine complaints, Reports as per HPI and Denies palpitations Hematologic/Lymphatic: Hematologic/Lymphatic: Reports no additional hematologic/lymphatic complaints and Reports as per HPI Allergic/Immunologic: Allergic/Immunologic: Reports no additional allergic/immunologic complaints and Reports as per HPI [facility] Past Medical History Medical History Polyarthralgia LVH (left ventricular hypertrophy) Atrial flutter Family History Family History Mother HTN (hypertension) Surgical History Surgical History H/O hemicolectomy Hx of colostomy Social History Social History Alcohol intake: never Patient Tobacco Use Status: Never used Tobacco Use of substances other than those prescribed or required for medical reasons: No Are you DNR?: No Advance Directives: No Advance Directives Information Provided: Yes Meds Allergies Allergy/AdvReac Type Severity Reaction Status Date / Time No Known Allergies Allergy Verified 03/02/24 09:42 [No Known Allergies*] Active Medications: Current Medications Apixaban (Apixaban 5 Mg Tablet) 5 mg PO BID [facility] Atorvastatin Calcium (Atorvastatin Calcium 20 Mg Tablet) 20 mg PO DAILY [facility] Calcium Gluconate (Calcium Gluconate) 1 gm in 50 mls @ 50 mls/hr IV ONCE ONE Stop: 03/02/24 15:40 Last Admin: 03/02/24 15:16 Dose: 50 mls/hr Dopamine HCl/Dextrose (Dopamine Hcl/D5w) 400 mg in 250 mls @ 0 mls/hr IVCONT .Q0M [facility]; Protocol Last Titration: 03/02/24 15:11 Dose: 10 mcg/kg/min, 44.57 mls/hr Omeprazole (Omeprazole 40 Mg Capsule.Dr) 40 mg PO DAILY@0630 [facility] Sertraline HCl (Sertraline Hcl 50 Mg Tablet) 50 mg PO DAILY [facility] Home Medications ?Medication ?Instructions ?Recorded ?Confirmed ?Last Taken ?Type atorvastatin 20 mg tablet 20 mg PO DAILY 10/08/20 03/02/24 Unknown History diclofenac sodium 1 % topical gel 2 g topical QID 10/08/20 02/29/24 Unknown History (Voltaren) ergocalciferol (vitamin D2) 50,000 unit PO 10/08/20 02/29/24 03/02/24 07:00 History unit tablet morphine 60 mg capsule,extended 60 mg PO BID 10/08/20 03/02/24 03/02/24 07:00 History release 24 hr multiphase promethazine 25 mg tablet 25 mg PO Q4-6H PRN Nausea 10/08/20 03/02/24 Unknown History sennosides 8.6 mg tablet 8.6 mg PO BEDTIME 10/08/20 03/02/24 Unknown History sertraline 50 mg tablet (Zoloft) 50 mg PO DAILY 10/08/20 03/02/24 Unknown History omeprazole 20 mg capsule,delayed 40 mg PO DAILY 01/26/24 03/02/24 03/02/24 07:00 History release oxycodone 30 mg tablet 30 mg PO Q8H PRN pain 02/29/24 03/02/24 03/02/24 07:00 History Physical Exam Vital Signs: Vital Signs: Last Vital Signs Temp 97 F 03/02/24 11:30 Pulse 29 L 03/02/24 15:11 Resp 11 L 03/02/24 15:00 BP 122/90 H 03/02/24 15:11 Pulse Ox 98 03/02/24 15:00 O2 Del Method Nasal Cannula 03/02/24 15:00 O2 Flow Rate 1 03/02/24 15:00 BMI result Body Mass Index 33.6 Const: General: comfortable and no acute distress Orientation/consciousness: patient oriented x3 HEENT: Other: Unremarkable Head: Yes normal to inspection Neck: Neck: Yes normal visual inspection Chest: Chest palpation & inspection: normal inspection of the chest Resp: Auscultation: clear to auscultation bilaterally Cardio: Palpation: normal PMI Heart sounds: S1 normal heart sound present, S2 normal heart sound present, no gallops, no murmurs and no rubs GI: Palpation (GI): Soft to palpation Back/Spine/Pelvis: Other: unremarkable Skin: General skin exam: no rashes or lesions noted Neuro: General: patient oriented x3 Extrem: General: Yes normal to inspection Psych: Mental Status: mental status grossly normal Objective Labs and Meds 03/02/24 15:12 ECG Interpretation: EKG with sinus bradycardia at 54/Min; left ventricular hypertrophy with repolarization changes. Assessment and Plan (1) Atrial flutter with rapid ventricular response: Status: Acute (2) Bradycardia: Status: Acute Plan As discussed above, initially atrial flutter with rapid rate but now having sinus bradycardia. This is suggestive of sick sinus syndrome. Currently on dopamine drip. He is going to probably need a permanent pacemaker. I discussed with him at length in the ICU using permastone mechanic but he absolutely refuses it. Clearly explained to him that he could without a pacemaker and he states that is okay with him and he does not want a pacemaker at any cost. Discussed with supervisory examiner Dr. Breaux as well as MOBILE EQUIPMENT MECHANIC Dr. Crowley. Procedures Date of Service Date of Service: 03/02/24
[2024-03-02 15:33] LABS: Lactic Acid 0.9 mmol/L (0.5-2.0)
[2024-03-02] MEDS: HYDROmorphone HCl 0.5 MG/0.5 ML SYRINGE IVPUSH (15:35)
[2024-03-02 15:38] LABS: Alanine Aminotransferase 25 U/L (0-40); Albumin Level 3.9 g/dL (3.5-5.0); Alkaline Phosphatase 70 U/L (39-117); Anion Gap 15 (12-20); Aspartate Amino Transferase 20 U/L (5-37); Bilirubin Total 0.6 mg/dL (0.0-1.0); Blood Urea Nitrogen 18 mg/dL (9-16); Calcium 9.6 mg/dL (8.4-10.2); Carbon Dioxide 29 mmol/L (22-29); Chloride 100 mmol/L (96-108); Creatinine Clr Calc Pharmacy 100.2; Estimated Glomerular Filt Rate > 60; Glucose Random 106 mg/dL (60-115); Magnesium 2.2 mg/dL (1.6-2.6); Phosphorus 3.7 mg/dL (2.7-4.5); Potassium 4.5 mmol/L (3.3-5.1); Sodium 139 mmol/L (135-145); Total Protein 6.7 g/dL (6.5-8.0)
[2024-03-02 15:59] LABS: TSH reflex Free T4 1.31 uIU/mL (0.32-4.0)
--- NOTE | 2024-03-02 17:10 | PHA.MEDREC ---
Pharmacy Consult ? Medication Reconciliation Pharmacy has reviewed the medication reconciliation completed by nursing.
[2024-03-02] MEDS: DOPamine HCL/D5W 400 MG/250 ML PLAST..BAG 66.85 MG IVCONT (20:14)
[2024-03-02] MEDS: ondansetron HCL 4 MG/2 ML VIAL IVPUSH (20:16)
[2024-03-02] MEDS: Apixaban 5 MG TABLET PO (20:16)
[2024-03-02] MEDS: Acetaminophen 325 MG TABLET 650 MG PO (20:27)
[2024-03-02] MEDS: oxyCODONE HCl Immed Release 15 MG TABLET 30 MG PO (20:55)
[2024-03-03] VITALS (27 sets, daily range): BP systolic 84–163; BP diastolic 35–81; PULSE 31–96; RESP 11–20; TEMP 36.4–36.8; O2SAT 93–100
[2024-03-03] MEDS: DOPamine HCL/D5W 400 MG/250 ML PLAST..BAG 66.85 MG IVCONT (00:14)
[2024-03-03] MEDS: Acetaminophen 325 MG TABLET 650 MG PO (01:27)
--- NOTE | 2024-03-03 03:04 | PM.EVENT ---
Documented by User: Tona Ghotra NP 03/03/24 04:08 Event Note Date of Service: 03/03/24 Event Note: I was called to the bedside by nursing staff to speak with Mr. Looney at 03:00.? Associate Automation Engineer Madi present and interpreting the conversation. Mr. Looney was alert and oriented to person, place, time and situation and stated that the medication was giving him a headache and he didn't want it any more; he said he just wanted to go to sleep and did not want to be woken up.? He stated that we could give him medication after he slept for 3 hours.?I very clearly stated that I was concerned that if he did not have the medication running that his heart rate would drop too low and that he could . He stated that his heart has been like this for a long time and he has not yet. He stated that he did not care if he , he just wanted to sleep. I? attempted to discuss his condition and offered an alternative medication, but Mr. Looney stated that he didn't want to talk to any other doctors and didn't want to be woken up for any blood work, medications or any other care. He refused to allow discussion with family. The patient was angry, and removed his blood pressure cuff and defibrillator pads. He did agree to stay on the heart monitor.? At this time, the Dopamine drip is disconnected at the patient?s insistence.? He has again acknowledged that he may from his bradycardia, but has declined medication nonetheless. The patient's care was discussed with Dr. Breaux.? She is aware of all the above as well as the plan of care for this patient. Time Spent With Patient Time: Total time managing care of this patient today ____ minutes. Documented by User: Harmony Breaux MD 03/03/24 07:48 Event Note Date of Service: 03/03/24
--- NOTE | 2024-03-03 03:05 | PC.NURSE ---
Patient alert oriented x4, complaining of headache through the night, Tylenol 650 mg provided x2, Oxycodone 30 mg provided, with no relief. Around 0240 became agitated, taking BP cuff off and yelling at staff. casting director JULIAN Barraza and this RN at bedside. Patient requested to be off of Dopamine drip d/t headache, refused another dose of Tylenol for pain and refused melatonin for sleep. Offered to call family to come to bedside for emotional support - pt refused. Pt stated if dopamine was not stopped he would pull out IV catheter. Pt made aware of risk of stopping dopamine - pt understands his heart may stop. Dopamine turned off at 0303. Pt agreeable to wear heart monitor but refusing lab draws, and requesting to keep door closed and for staff not to enter room. Pt educated on safety measures. JULIAN Ghotra aware.
--- NOTE | 2024-03-03 08:25 | P.PNCC_ITS ---
Subjective Subjective Date of Service: 03/03/24 Interval History: Mr. Looney has been agitated and uncooperative with care 03/02 PM and 03/03 AM; of note, Mr. Looney appears alert, oriented to person, place, time, and situation; all communication has been performed with a railway head tender; Mr. Looney has declined medications, including dopamine gtt, laboratories, and clinical assessments, including blood pressure monitoring; Mr. Looney has been told that he may suffer significant morbidity as well as mortality from lack of care, which he has stated understanding of; the team has offered to call Mr. Looney's loved ones, though he declines; 03/03 AM, Mr. Looney continues to decline medical care, asking the team to leave him alone; Mr. Looney appears to be speaking to loved ones on the phone Critical Care Time (minutes): 60 Physical Exam 2 Vital Signs: Vital Signs: Last Vital Signs Temp 98.3 F 03/03/24 00:00 Pulse 40 L 03/03/24 08:00 Resp 16 03/03/24 08:00 BP 98/54 L 03/03/24 08:00 Pulse Ox 97 03/03/24 08:00 O2 Del Method Room Air 03/03/24 08:00 O2 Flow Rate 1 03/02/24 18:55 BMI result Body Mass Index 33.6 Const: General: healthy appearing, comfortable, no acute distress, well developed, alert, awake and Physically active; No cooperative O rientation/consciousness: patient oriented x3 Eyes: General: appearance normal, both eyes and all related structures Neck: Neck: Yes normal visual inspection and Yes full ROM Chest: Chest palpation & inspection: normal inspection of the chest Skin: General skin exam: no rashes or lesions noted Neuro: General: patient oriented x3, tone normal, moves all extremities and no focal motor deficits Extrem: General: Yes normal to inspection and Yes full ROM Psych: Other: agitated, at times verbally aggressive with team Appearance: well kempt Objective Data Labs 03/02/24 15:12 Labs: Laboratory Results - last 24 hr 03/02/24 03/02/24 15:11 15:12 Sodium 139 Potassium 4.5 Chloride 100 Carbon Dioxide 29 Anion Gap 15 BUN 18 H Creatinine 1.06 Estim Creat Clear Calc 100.2 Estimated GFR > 60 Random Glucose 106 Lactic Acid 0.9 Calcium 9.6 Phosphorus 3.7 Magnesium 2.2 Total Bilirubin 0.6 AST 20 ALT 25 Alkaline Phosphatase 70 Total Protein 6.7 Albumin 3.9 TSH 1.31 Progress Note: A&P Assessment and plan (1) Sick sinus syndrome: Status: Acute (2) Bradycardia: Status: Acute (3) Atrial flutter with rapid ventricular response: Status: Acute Plan Patient is a 63 Y M with hyperlipidemia, obesity, recent diagnosis of atrial flutter, presenting on 03/02 for elective ablation; in PACU, patient developed SVT, for which patient synchronized cardioverted successfully, however, developed intermittent bradycardia to 20s, with improvement to 50s w/o intervention; patient admitted to ICU for closer monitoring, pacemaker, though course c/b d/t patient non-compliance N: no acute issues CV: atrial flutter s/p abation, c/b SVT, now intermittent bradycardia; to avoid AV lisa blockers; epinephrine vs dopamine gtt, atropine as needed; plan for pacemaker today if patient allows R: no acute issues GI: NPO for procedural planning : no acute issues; follow-up BMP if patient allows H: atrial flutter, on apixaban; no acute issues; follow-up CBC if patient allows ID: no acute issues E: no acute issues P: agitated, does not appear to improve despite significant efforts by team Quality Stroke Does the patient have a stroke diagnosis?: No VTE Prior VTE?: No VTE Risk Level:: Medical - moderate - high VTE Device Contraindication: N/A - Device Ordered VTE Drug Contraindication: N/A - Med Ordered
--- NOTE | 2024-03-03 09:39 | HO.POSTANES ---
Post Anesthesia Evaluation Post Anesthesia Evaluation Date of Service: 03/02/24 Vital Signs: Vital Signs Temp Pulse Resp BP Pulse Ox O2 Del Method 03/03/24 09:00 58 15 100/44 L 98 Room Air 03/03/24 08:00 40 L 16 98/54 L 97 Room Air 03/03/24 07:00 35 L 15 92/48 L 97 Room Air 03/03/24 05:54 43 L 20 93/45 L 98 Room Air 03/03/24 04:59 31 L 11 L 99/42 L 96 Room Air 03/03/24 03:58 66 15 84/35 L 97 Room Air 03/03/24 03:03 72 90/43 L 03/03/24 03:00 35 L 13 90/43 L 93 Room Air 03/03/24 01:59 58 12 133/73 94 Room Air 03/03/24 01:19 96 160/76 H 03/03/24 00:59 57 12 163/81 H 94 Room Air 03/03/24 00:27 36 L 99/49 L 03/03/24 00:14 46 L 99/49 L 03/03/24 00:00 98.3 F 47 L 13 99/49 L 94 Room Air 03/02/24 23:59 6 L 99/49 L 03/02/24 23:00 85 19 154/81 H 94 Room Air 03/02/24 22:00 55 16 139/71 93 Room Air Anesthesia: Monitored Mental Status: Awake Pain Control: Satisfactory Nausea/Vomiting: None Hydration: Adequate Anesthesia-Related Issues: No Anes. Related Issues
[2024-03-03 09:45] LABS: MANUAL DIFF FLAG NO
[2024-03-03 09:50] LABS: Basophils Percent Auto 0.5 % (0-2); Eosinophils Absolute Auto 0.1 X10*3/uL (0.0-0.4); Eosinophils Percent Auto 1.3 % (0-4); Hematocrit 36.4 % (42.0-52.0); Hemoglobin 12.6 g/dl (14.0-18.0); Imm Gran Abs Auto 0.01 X10*3/uL (0.00-0.03); Imm Gran Pct Auto 0.2 % (0.0-0.4); Lymphocytes Absolute Auto 1.4 X10*3/uL (1.2-4.9); Lymphocytes Percent Auto 25.9 % (20-40); Mean Corpuscular HGB Conc 34.6 g/dl (31.0-36.0); Mean Corpuscular Hemoglobin 30.4 pg (27.0-33.0); Mean Corpuscular Volume 87.9 fL (80.0-98.0); Monocytes Absolute Auto 0.5 X10*3/uL (0.1-1.2); Monocytes Percent Auto 8.9 % (2-11); Neutrophils Absolute Auto 3.5 x10*3/uL (2.0-8.3); Neutrophils Percent Auto 63.2 % (45-73); Platelet Count 191 X10*3/uL (160-400); Red Blood Count 4.14 X10*6/uL (4.60-5.80); Red Cell Distribution Width 12.4 % (11.0-16.0); White Blood Count 5.5 X10*3/uL (4.8-10.8)
[2024-03-03 10:10] LABS: Alanine Aminotransferase 21 U/L (0-40); Albumin Level 3.8 g/dL (3.5-5.0); Alkaline Phosphatase 61 U/L (39-117); Anion Gap 13 (12-20); Aspartate Amino Transferase 17 U/L (5-37); Bilirubin Total 0.7 mg/dL (0.0-1.0); Blood Urea Nitrogen 19 mg/dL (9-16); Calcium 9.7 mg/dL (8.4-10.2); Carbon Dioxide 29 mmol/L (22-29); Chloride 101 mmol/L (96-108); Creatinine Clr Calc Pharmacy 70.8; Estimated Glomerular Filt Rate 48; Glucose Random 102 mg/dL (60-115); Magnesium 2.1 mg/dL (1.6-2.6); Sodium 139 mmol/L (135-145); Total Protein 6.5 g/dL (6.5-8.0)
--- NOTE | 2024-03-03 11:46 | PM.PNCARD ---
Subjective Subjective Date of Service: 03/03/24 Interval history: Generalized body pain. Overall, does not feel good. Nothing clear-cut cardiac. Review of Systems Review of Systems Yes all other systems are reviewed and are negative Constitutional: Reports as per HPI and Reports no additional constitutional complaints Eyes: Reports as per HPI and Denies no additional eye complaints Denies system reviewed and no additional complaints, except as documented and Reports as per HPI Cardiovascular: Reports as per HPI, Reports no additional cardiovascular complaints, Denies acrocyanosis, Denies cool extremities, Denies chest pain, Denies leg edema, Denies lightheadedness, Denies palpitations and Denies dyspnea Respiratory: Reports as per HPI, Denies no additional respiratory complaints and Denies dyspnea Gastrointestinal: Reports as per HPI and Denies no additional gastrointestinal complaints Genitourinary: Reports no additional male genitourinary complaints and Reports as per HPI Musculoskeletal: Reports no additional musculoskeletal complaints and Reports as per HPI Skin/Breast: Reports system reviewed and no additional complaints, except as docu Reports system reviewed and no additional complaints, except as documented and Reports as per HPI Psychiatric: Reports no additional psychiatric complaints and Reports as per HPI Endocrine: Reports no additional endocrine complaints, Reports as per HPI and Denies palpitations Hematologic/Lymphatic: Reports no additional hematologic/lymphatic complaints and Reports as per HPI Allergic/Immunologic: Reports no additional allergic/immunologic complaints and Reports as per HPI Physical Exam Vital Signs: Last Vital Signs Temp 98.3 F 03/03/24 00:00 Pulse 46 L 03/03/24 11:00 Resp 13 03/03/24 11:00 BP 92/49 L 03/03/24 11:00 Pulse Ox 100 03/03/24 11:00 O2 Del Method Room Air 03/03/24 11:00 O2 Flow Rate 1 03/02/24 18:55 BMI result Body Mass Index 33.6 Const General: comfortable and no acute distress Orientation/consciousness: patient oriented x3 HEENT Other: Unremarkable Head: Yes normal to inspection Neck Neck: Yes normal visual inspection Chest Chest palpation & inspection: normal inspection of the chest Resp Auscultation: clear to auscultation bilaterally Cardio Palpation: normal PMI Heart sounds: S1 normal heart sound present, S2 normal heart sound present, no gallops, no murmurs and no rubs GI Palpation (GI): Soft to palpation Back/Spine/Pelvis Other: unremarkable Skin General skin exam: no rashes or lesions noted Neuro General: patient oriented x3 Extrem General: Yes normal to inspection Psych Mental Status: mental status grossly normal Objective Labs and Meds 03/03/24 09:24 03/03/24 09:24 Lab results: Laboratory Results - last 24 hr 03/02/24 03/02/24 03/03/24 15:11 15:12 09:24 WBC 5.5 RBC 4.14 L Hgb 12.6 L Hct 36.4 L MCV 87.9 MCH 30.4 MCHC 34.6 RDW 12.4 Plt Count 191 MPV 10.0 Immature Gran % (Auto) 0.2 Neut % (Auto) 63.2 Lymph % (Auto) 25.9 [place] % (Auto) 8.9 Eos % (Auto) 1.3 Baso % (Auto) 0.5 Lymph # (Auto) 1.4 [place] # (Auto) 0.5 Eos # (Auto) 0.1 Baso # (Auto) 0.0 Abs Immat Gran (auto) 0.01 Absolute Neuts (auto) 3.5 Absolute Nucleated RBC 0.000 Nucleated RBC % (auto) 0.0 Sodium 139 139 Potassium 4.5 4.0 Chloride 100 101 Carbon Dioxide 29 29 Anion Gap 15 13 BUN 18 H 19 H Creatinine 1.06 1.50 H Estim Creat Clear Calc 100.2 70.8 Estimated GFR > 60 48 Random Glucose 106 102 Lactic Acid 0.9 Calcium 9.6 9.7 Phosphorus 3.7 4.0 Magnesium 2.2 2.1 Total Bilirubin 0.6 0.7 AST 20 17 ALT 25 21 Alkaline Phosphatase 70 61 Total Protein 6.7 6.5 Albumin 3.9 3.8 TSH 1.31 Progress Note: A&P Assessment and plan (1) Sick sinus syndrome: Status: Acute (2) Bradycardia: Status: Acute (3) Atrial flutter with rapid ventricular response: Status: Acute Plan Patient with bradycardia post cardioversion. Initially, he had atrial flutter with rapid ventricular rate. Suspect he has got significant sick sinus syndrome. He was on a dopamine drip but overnight, it was taken off due to agitation. I discussed with him in detail using shopper and explained the issues. Suggest that he undergo a permanent pacemaker and he is willing. After that, we can put him back on beta-blockers and consider antiarrhythmics as needed. He also has a bump in creatinine from 1.06-1.5 which is likely from bradycardia and reduced perfusion. With improvement in rates, that should improve. Discussed with crating and moving estimator. Also discussed with EP. Time Spent With Patient Time: Total time managing care of this patient today ____ minutes. Progress Note: Quality Stroke Does the patient have a stroke diagnosis?: No Procedures Date of Service Date of Service: 03/03/24
--- NOTE | 2024-03-03 11:59 | MHC.CM.PN ---
Pt in ICU w/bradycardia needing a pacer. Pt refusing Dopamine gtt and requesting to be left alone to sleep: Discussed w/care team at rounds - concensus was to let pt sleep and consider medical treatment before CM assessment and assistance w/d/c planning needs. CM to await pt determination and then meet w/pt to discuss d/c needs.
--- NOTE | 2024-03-03 17:33 | P.CONAN_ITS ---
HPI - Anesthesia Eval Consult details Narrative: [facility] Active Problems Active Problems: All Active Problems (Updated 03/03/24 @ 08:38 by Harmony Breaux MD) Sick sinus syndrome (Acute) Hyperlipidemia (Acute) Bradycardia (Acute) Shortness of breath (Acute) LVH (left ventricular hypertrophy) (Acute) Atrial flutter (Acute) Atrial flutter with rapid ventricular response (Acute) Past Medical History Medical History Polyarthralgia LVH (left ventricular hypertrophy) Atrial flutter Family History Family History Mother HTN (hypertension) Family history of problems with anesthesia: No Surgical History Surgical History H/O hemicolectomy Hx of colostomy History of Problems with Anesthesia: No Social History Social History Household Members: None Housing: House Do you presently have visiting nurse or other home services: Yes ([employer]) Alcohol intake: never Patient Tobacco Use Status: Never used Tobacco Use of substances other than those prescribed or required for medical reasons: No Currently Displaying Signs/Symptoms of Drug Intoxication Withdrawal: No Have you been hit, kicked, punched, or otherwise hurt by someone within the past year? If so, by whom?: No Do you feel safe in your current relationship?: No Current Relationship Is there a partner from a previous relationship who is making you feel unsafe now?: No Are you made to feel afraid or neglected: No Spiritual Healthcare Practices: none per patient Scientology Healthcare Practices: none per patient Cultural Healthcare Practices: none per patient Are you DNR?: No Advance Directives: No Advance Directives Information Provided: Yes Advance Directives on File: No Do you have a plan to hurt others: No Plan Recently lost weight without trying: No Eating poorly because of decreased appetite: No Nutrition Risks: No Nutritional Risk Poor oral hygiene: No Meds Allergies Allergy/AdvReac Type Severity Reaction Status Date / Time No Known Allergies Allergy Verified 03/02/24 09:42 [No Known Allergies*] Active Medications: Current Medications Apixaban (Apixaban 5 Mg Tablet) 5 mg PO BID AGUSTIN Last Admin: 05/03/24 12:11 Dose: Not Given Atorvastatin Calcium (Atorvastatin Calcium 20 Mg Tablet) 20 mg PO DAILY [facility] Last Admin: 03/03/24 12:11 Dose: Not Given Dopamine HCl/Dextrose (Dopamine Hcl/D5w) 400 mg in 250 mls @ 0 mls/hr IVCONT .Q0M [facility]; Protocol Last Titration: 03/03/24 03:03 Dose: 0 mcg/kg/min, 0 mls/hr Omeprazole (Omeprazole 40 Mg Capsule.Dr) 40 mg PO DAILY@0630 [facility] Last Admin: 03/03/24 06:13 Dose: Not Given Sertraline HCl (Sertraline Hcl 50 Mg Tablet) 50 mg PO DAILY [facility] Last Admin: 03/03/24 12:11 Dose: Not Given Home Medications ?Medication ?Instructions ?Recorded ?Confirmed ?Last Taken ?Type morphine 60 mg capsule,extended 60 mg PO BID 10/08/20 03/02/24 03/02/24 07:00 History release 24 hr multiphase promethazine 25 mg tablet 25 mg PO Q4-6H PRN Nausea 10/08/20 03/02/24 Unknown History sennosides 8.6 mg tablet 8.6 mg PO BEDTIME 10/08/20 03/02/24 Unknown History omeprazole 20 mg capsule,delayed 40 mg PO DAILY 01/26/24 03/02/24 03/02/24 07:00 History release oxycodone 30 mg tablet 30 mg PO Q8H PRN pain 02/29/24 03/02/24 03/02/24 07:00 History cholecalciferol (vitamin D3) 125 125 mcg PO DAILY 03/02/24 03/02/24 03/02/24 07:00 History mcg (5,000 unit) capsule clonazepam 2 mg tablet 1 mg PO TID PRN anxiety 03/02/24 03/02/24 Unknown History hydrochlorothiazide 12.5 mg tablet 12.5 mg PO DAILY 03/02/24 03/02/24 Unknown History Exam Height,Weight and Vital Signs: Height 6 ft 2 in Weight 118.841 kg Last Vital Signs Temp 98.0 F 03/03/24 16:00 Pulse 38 L 03/03/24 16:00 Resp 20 03/03/24 16:00 BP 119/53 L 03/03/24 16:00 Pulse Ox 98 03/03/24 16:00 O2 Del Method Room Air 03/03/24 16:00 O2 Flow Rate 1 03/02/24 18:55 Pertinent Lab Results Pertinent Lab Results: Laboratory Tests 03/02/24 03/02/24 03/03/24 15:11 15:12 09:24 WBC 5.5 RBC 4.14 L Hgb 12.6 L Hct 36.4 L MCV 87.9 MCH 30.4 MCHC 34.6 RDW 12.4 Plt Count 191 MPV 10.0 Immature Gran % (Auto) 0.2 Neut % (Auto) 63.2 Lymph % (Auto) 25.9 [place] % (Auto) 8.9 Eos % (Auto) 1.3 Baso % (Auto) 0.5 Lymph # (Auto) 1.4 [place] # (Auto) 0.5 Eos # (Auto) 0.1 Baso # (Auto) 0.0 Abs Immat Gran (auto) 0.01 Absolute Neuts (auto) 3.5 Absolute Nucleated RBC 0.000 Nucleated RBC % (auto) 0.0 Sodium 139 139 Potassium 4.5 4.0 Chloride 100 101 Carbon Dioxide 29 29 Anion Gap 15 13 BUN 18 H 19 H Creatinine 1.06 1.50 H Estim Creat Clear Calc 100.2 70.8 Estimated GFR > 60 48 Random Glucose 106 102 Lactic Acid 0.9 Calcium 9.6 9.7 Phosphorus 3.7 4.0 Magnesium 2.2 2.1 Total Bilirubin 0.6 0.7 AST 20 17 ALT 25 21 Alkaline Phosphatase 70 61 Total Protein 6.7 6.5 Albumin 3.9 3.8 TSH 1.31 Airway Mallampati Class: II TM Dist: >3cm Neck ROM: Full Loose/Missing/Broken Teeth: No Heart: RRR Lungs: CTA Assessment and Plan Assessment Anesthesia Assessment: Anesthesia Plan Discussed and Chart Reviewed Final Anesthetic Review Family History of Problems with Anesthesia: No History of Problems with Anesthesia: No NPO: Yes ASA Class: IV and Emergency Final Preanesthetic Review: No Changes in Pt Med Stat, Meds/Allgs Chart Reviewed, Consent Obtained/Reviewed and Anes Risks/Benef Reviewed Patient Risk: High Procedure Risk: Low Anesthetic Plan Anesthetic Plan: GA Disposition: Inp. Admit - ICU
[2024-03-03] MEDS: ceFAZolin Sodium/Dextrose,Iso 2 GM/50 ML PIGGYBACK IV (18:20)
--- NOTE | 2024-03-03 19:16 | P.OP_ITS ---
Operative Note Operative Note Date of Service: 03/03/24 Narrative: NAME OF PROCEDURE: ? 1.???Dual chamber?pacemaker?with Esteban ? INDICATION FOR PROCEDURE:??Sick sinus syndrome Description of Procedure:?Patient was identified brought to the electrophysiology laboratory in a postabsorptive state.??The left pectoral region was prepped and draped in usual sterile fashion. Incision was made over the left pectoral region and pectoral subcutaneous pocket was made. Afterwards left axillary venous access was obtained using micropuncture needle and fluoroscopic guidance, a 7-[place] sheath was placed.??Right ventricular lead was placed in the right ventricular septum ?with good sensing and pacing thresholds.??The sheath was split and the lead was then anchored to the pectoral fascia with Ethibond suture.?? ? Afterwards left axillary venous access was obtained using micropuncture needle and fluoroscopic guidance, a 7-[place] sheath was placed.??Right atrial pacing lead was advanced and placed in the base of the right atrial appendage with good sensing and pacing thresholds.??The sheath was split and the lead was then anchored to the pectoral fascia with Ethibond suture.?? ? The subcutaneous pocket was made and the wound was irrigated with antibiotic solution.??The??leads were then connected to a?pacemaker?generator and placed in the pocket.??The wound was closed with 3 layers of absorbable sutures.?? Patient tolerated procedure well.??There were no complications. ? ? IMPRESSION:?? Successful?implantation?of Dual chamber?pacemaker? ? ? PLAN: ? 1.?Routine postprocedure monitoring. 2.?CXR today? 3.?Post operative Abx? 4. ???EKG today? 5. ???Interrogation of device Post op instructions 1. No shower 3 days 2. Do not take bandage off for 5 days 3. Restrict movement of left arm for 6 weeks. Left elbow not to go above shoulder level 4. Wound check in 2-3 weeks 5. No weight lifting for 6 weeks
[2024-03-03] MEDS: oxyCODONE HCl Immed Release 15 MG TABLET PO (21:17)
[2024-03-03] MEDS: Apixaban 5 MG TABLET PO (21:18)
[2024-03-04] VITALS (13 sets, daily range): BP systolic 110–136; BP diastolic 43–96; PULSE 60–77; RESP 12–22; TEMP 36.3–36.4; O2SAT 95–99; BMI 34.5
[2024-03-04] MEDS: ceFAZolin Sodium/Dextrose,Iso 2 GM/50 ML PIGGYBACK IV (00:18)
[2024-03-04] MEDS: oxyCODONE HCl Immed Release 15 MG TABLET 30 MG PO ×2 (03:19→11:21)
[2024-03-04] MEDS: Omeprazole 40 MG CAPSULE.DR PO (05:49)
--- NOTE | 2024-03-04 07:32 | PC.NURSE ---
Pt. refusing morning lab draws. Pt. educated on importance of labs by this RN, pt. continues to refuse. aware.
[2024-03-04] MEDS: Sertraline HCL 50 MG TABLET PO (08:39)
[2024-03-04] MEDS: Atorvastatin Calcium 20 MG TABLET PO (08:39)
[2024-03-04] MEDS: Apixaban 5 MG TABLET PO (08:39)
--- NOTE | 2024-03-04 08:45 | PM.CCPN ---
Subjective Subjective Date of Service: 03/04/24 Interval History: s/p pacemaker 03/03 PM; no significant overnight events Critical Care Time (minutes): 60 Physical Exam Vital Signs: Vital Signs: Last Vital Signs Temp 97.4 F 03/04/24 07:00 Pulse 60 03/04/24 08:00 Resp 21 H 03/04/24 08:00 BP 120/65 03/04/24 08:00 Pulse Ox 97 03/04/24 08:00 O2 Del Method Room Air 03/04/24 08:00 O2 Flow Rate 1 03/02/24 18:55 BMI result Body Mass Index 34.5 Const: General: cooperative, healthy appearing, comfortable, no acute distress, well developed, alert, awake and Physically active Orientation/consciousness: patient oriented x3 HEENT: Head: Yes normal to inspection, Yes normocephalic and Yes atraumatic Eyes: General: appearance normal, both eyes and all related structures Neck: Neck: Yes normal visual inspection, Yes full ROM, Yes trachea midline and Yes supple Chest: Other: appreciable pacemaker L chest; overlying skin clean, dry, w/o fluctuance, induration Chest palpation & inspection: normal inspection of the chest Resp: Other: no appreciable rales, rhonchi, wheezing Effort & Inspection: normal respiratory effort Cardio: Rate: regular rate Rhythm: regular rhythm GI: Inspection: Yes normal to inspection, No Abdominal wall edema and No distended Palpation (GI): Soft to palpation, not firm, nontender, no guarding and not rigid Skin: General skin exam: no rashes or lesions noted Neuro: General: patient oriented x3, tone normal, moves all extremities and no focal motor deficits Extrem: General: Yes normal to inspection, Yes full ROM, Yes capillary refill normal and Yes no clubbing, cyanosis or edema Psych: Appearance: grossly normal Objective Data Labs 03/03/24 09:24 03/03/24 09:24 Labs: Laboratory Results - last 24 hr 03/03/24 09:24 WBC 5.5 RBC 4.14 L Hgb 12.6 L Hct 36.4 L MCV 87.9 MCH 30.4 MCHC 34.6 RDW 12.4 Plt Count 191 MPV 10.0 Immature Gran % (Auto) 0.2 Neut % (Auto) 63.2 Lymph % (Auto) 25.9 [place] % (Auto) 8.9 Eos % (Auto) 1.3 Baso % (Auto) 0.5 Lymph # (Auto) 1.4 [place] # (Auto) 0.5 Eos # (Auto) 0.1 Baso # (Auto) 0.0 Abs Immat Gran (auto) 0.01 Absolute Neuts (auto) 3.5 Absolute Nucleated RBC 0.000 Nucleated RBC % (auto) 0.0 Sodium 139 Potassium 4.0 Chloride 101 Carbon Dioxide 29 Anion Gap 13 BUN 19 H Creatinine 1.50 H Estim Creat Clear Calc 70.8 Estimated GFR 48 Random Glucose 102 Calcium 9.7 Phosphorus 4.0 Magnesium 2.1 Total Bilirubin 0.7 AST 17 ALT 21 Alkaline Phosphatase 61 Total Protein 6.5 Albumin 3.8 Progress Note: A&P Assessment and plan (1) Sick sinus syndrome: Status: Acute (2) Atrial flutter: Status: Acute (3) Hyperlipidemia: Status: Acute Plan Patient is a 63 Y M with hyperlipidemia, obesity, recent diagnosis of atrial flutter, presenting on 03/02 for elective synchronized cardioversion, developed bradycardia to 20s/30s, c/f sick sinus syndrome, s/p pacemaker 03/03 N: no acute issues CV: atrial flutter s/p cardioversion, c/b bradycardia, c/f sick sinus syndrome, s/p pacemaker 03/03 PM R: no acute issues GI: no acute issues : no acute issues; follow-up BMP if patient allows H: atrial flutter, on apixaban; no acute issues; follow-up CBC if patient allows ID: no acute issues E: no acute issues P: intermittent agitation, desires to go home, though verbally re-directable; of note, patient has not endorsed any homicidal nor suicidal ideation throughout hospital course Quality Stroke Does the patient have a stroke diagnosis?: No VTE Prior VTE?: No VTE Risk Level:: Medical - moderate - high VTE Device Contraindication: N/A - Device Ordered VTE Drug Contraindication: N/A - Med Ordered
--- NOTE | 2024-03-04 08:54 | PM.DS ---
DS: Providers Provider Date of Service: 03/04/24 Date of admission: 03/02/24 12:47 Date of discharge: 03/04/24 Primary care physician: Torres Mcguire MD Admitting clinician: Harmony Breaux Consults: 03/02/24 14:52 Consult to Physician Routine Consulting Provider: Huber Bill Reason for consultation: Bradycardia Has provider been notified: Yes Attending physician on discharge: Harmony Breaux DS: Diagnosis Discharge Diagnosis (1) Sick sinus syndrome: Status: Acute (2) Atrial flutter: Status: Acute (3) Hyperlipidemia: Status: Acute DS: Summary Hospital Course Hospital Course: Mr. Looney is a 63 Y M with recent diagnosis atrial flutter, presenting on 03/02 for elective synchronized cardioversion, which was complicated by intermittent bradycardia to 20s/30s, thought to be due to now revealed sick sinus syndrome; Mr. Looney was admitted to the ICU for monitoring and was briefly on chronotropic medications; Mr. Looney received a permanent pacemaker on 03/03 PM; on 03/04 AM, Mr. Looney was discharged home with patient instructions, return precautions, and follow-up with cardiology Status at Discharge Overall status at discharge: patient is back to baseline Time Attestation Total time managing care of this patient today: 30 mintues. Discharge Coordination Time (in mins): 30 Quality: Safe Use of Opioids Does Pt have an Active Cancer Diagnosis on the Problem List?: No Quality: Stroke Does the patient have a stroke diagnosis?: No Physical Exam Vital Signs: Vital Signs: Last Vital Signs Temp 97.4 F 03/04/24 07:00 Pulse 60 03/04/24 08:00 Resp 21 H 03/04/24 08:00 BP 120/65 03/04/24 08:00 Pulse Ox 97 03/04/24 08:00 O2 Del Method Room Air 03/04/24 08:00 O2 Flow Rate 1 03/02/24 18:55 BMI result Body Mass Index 34.5 Const: General: cooperative, healthy appearing, comfortable, no acute distress, well developed, alert, awake and Physically active Orientation/consciousness: patient oriented x3 HEENT: Head: Yes normal to inspection, Yes normocephalic and Yes atraumatic Eyes: General: appearance normal, both eyes and all related structures Neck: Neck: Yes normal visual inspection, Yes full ROM, Yes trachea midline and Yes supple Chest: Other: pacemaker appreciable L chest w/o overlying erythema, edema, fluctuance, induration Resp: Other: no appreciable rales, rhonchi, wheezing Effort & Inspection: normal respiratory effort Cardio: Rate: regular rate Rhythm: regular rhythm GI: Inspection: Yes normal to inspection, No Abdominal wall edema and No distended Palpation (GI): Soft to palpation, not firm, nontender, no guarding and not rigid Skin: General skin exam: no rashes or lesions noted Neuro: General: patient oriented x3, tone normal, moves all extremities and no focal motor deficits Extrem: General: Yes normal to inspection, Yes full ROM, Yes capillary refill normal and Yes no clubbing, cyanosis or edema Psych: Appearance: grossly normal DS: Data Data Completed and Pending Labs on day of discharge: Laboratory Results - last 24 hr 03/03/24 09:24 WBC 5.5 RBC 4.14 L Hgb 12.6 L Hct 36.4 L MCV 87.9 MCH 30.4 MCHC 34.6 RDW 12.4 Plt Count 191 MPV 10.0 Immature Gran % (Auto) 0.2 Neut % (Auto) 63.2 Lymph % (Auto) 25.9 [place] % (Auto) 8.9 Eos % (Auto) 1.3 Baso % (Auto) 0.5 Lymph # (Auto) 1.4 [place] # (Auto) 0.5 Eos # (Auto) 0.1 Baso # (Auto) 0.0 Abs Immat Gran (auto) 0.01 Absolute Neuts (auto) 3.5 Absolute Nucleated RBC 0.000 Nucleated RBC % (auto) 0.0 Sodium 139 Potassium 4.0 Chloride 101 Carbon Dioxide 29 Anion Gap 13 BUN 19 H Creatinine 1.50 H Estim Creat Clear Calc 70.8 Estimated GFR 48 Random Glucose 102 Calcium 9.7 Phosphorus 4.0 Magnesium 2.1 Total Bilirubin 0.7 AST 17 ALT 21 Alkaline Phosphatase 61 Total Protein 6.5 Albumin 3.8 Discharge Plan Discharge Anticipated Discharge Date/Time: 03/04/24 12:00 Patient Disposition: Home, Self-Care Discharge Diagnosis: Sick Sinus Syndrome Referrals: Torres Mcguire MD [Primary Care Provider] - 1 Week Discharge Medications: Continued cholecalciferol (vitamin D3) 125 mcg (5,000 unit) capsule 125 mcg PO DAILY clonazepam 2 mg tablet 1 mg PO TID PRN (Reason: anxiety) hydrochlorothiazide 12.5 mg tablet 12.5 mg PO DAILY promethazine 25 mg tablet 25 mg PO Q4-6H PRN (Reason: Nausea) sennosides 8.6 mg tablet 8.6 mg PO BEDTIME Rx Instructions: 2 tabs hs morphine 60 mg capsule, ER multiphase 24 hr 60 mg PO BID omeprazole 20 mg capsule,delayed release(DR/EC) 40 mg PO DAILY metoprolol succinate [Toprol XL] 50 mg tablet extended release 24 hr 50 mg PO DAILY 90 Days Qty: 90 3RF Eliquis 5 mg tablet 5 mg PO BID 90 Days Qty: 180 3RF oxycodone 30 mg tablet 30 mg PO Q8H PRN (Reason: pain) Discharge Orders: Discharge Order (Routine); Ordered 03/04/24 Ordered By: Harmony Breaux Activity on Discharge: Please See Below Stand Alone Forms: Patient Portal Discharge page Print Language: Portuguese Care Plan Goals: You have a condition called sick sinus syndrome, where your heart rate is at times fast and at times slow. You received a permanent pacemaker to help prevent and treat your heart rate being too slow. Please follow the instructions below. Please return to the hospital with any concerning symptoms, including, but not limited to, weakness, lightheadedness, fainting episodes, palpitations, fevers, and chills. Please follow-up with your biosolids management technician as instructed. 1. Do not shower for 3 days. 2. Do not take your bandage off for 5 days. 3. Please restrict movement of your left arm and no heavy lifting for 6 weeks. Please do not lift your left elbow above shoulder level. 4. Please follow-up for a wound check in 2-3 weeks. Health Concerns: You have a condition called sick sinus syndrome, where your heart rate is at times fast and at times slow. You received a permanent pacemaker to help prevent and treat your heart rate being too slow. Please follow the instructions below. Please return to the hospital with any concerning symptoms, including, but not limited to, weakness, lightheadedness, fainting episodes, palpitations, fevers, and chills. Please follow-up with your biosolids management technician as instructed. 1. Do not shower for 3 days. 2. Do not take your bandage off for 5 days. 3. Please restrict movement of your left arm and no heavy lifting for 6 weeks. Please do not lift your left elbow above shoulder level. 4. Please follow-up for a wound check in 2-3 weeks. Plan of Treatment: You have a condition called sick sinus syndrome, where your heart rate is at times fast and at times slow. You received a permanent pacemaker to help prevent and treat your heart rate being too slow. Please follow the instructions below. Please return to the hospital with any concerning symptoms, including, but not limited to, weakness, lightheadedness, fainting episodes, palpitations, fevers, and chills. Please follow-up with your biosolids management technician as instructed. 1. Do not shower for 3 days. 2. Do not take your bandage off for 5 days. 3. Please restrict movement of your left arm and no heavy lifting for 6 weeks. Please do not lift your left elbow above shoulder level. 4. Please follow-up for a wound check in 2-3 weeks. Assessment: You have a condition called sick sinus syndrome, where your heart rate is at times fast and at times slow. You received a permanent pacemaker to help prevent and treat your heart rate being too slow. Please follow the instructions below. Please return to the hospital with any concerning symptoms, including, but not limited to, weakness, lightheadedness, fainting episodes, palpitations, fevers, and chills. Please follow-up with your biosolids management technician as instructed. 1. Do not shower for 3 days. 2. Do not take your bandage off for 5 days. 3. Please restrict movement of your left arm and no heavy lifting for 6 weeks. Please do not lift your left elbow above shoulder level. 4. Please follow-up for a wound check in 2-3 weeks. Patient Instructions: Pacemaker (DC), Pacemaker (GEN)
--- NOTE | 2024-03-04 09:43 | PM.PNCARD ---
Subjective Subjective Date of Service: 03/04/24 Interval history: Feels good. Received permanent pacemaker yesterday. Review of Systems Review of Systems Yes all other systems are reviewed and are negative Constitutional: Reports as per HPI and Reports no additional constitutional complaints Eyes: Reports as per HPI and Denies no additional eye complaints Denies system reviewed and no additional complaints, except as documented and Reports as per HPI Cardiovascular: Reports as per HPI, Reports no additional cardiovascular complaints, Denies acrocyanosis, Denies cool extremities, Denies chest pain, Denies leg edema, Denies lightheadedness, Denies palpitations and Denies dyspnea Respiratory: Reports as per HPI, Denies no additional respiratory complaints and Denies dyspnea Gastrointestinal: Reports as per HPI and Denies no additional gastrointestinal complaints Genitourinary: Reports no additional male genitourinary complaints and Reports as per HPI Musculoskeletal: Reports no additional musculoskeletal complaints and Reports as per HPI Skin/Breast: Reports system reviewed and no additional complaints, except as docu Reports system reviewed and no additional complaints, except as documented and Reports as per HPI Psychiatric: Reports no additional psychiatric complaints and Reports as per HPI Endocrine: Reports no additional endocrine complaints, Reports as per HPI and Denies palpitations Hematologic/Lymphatic: Reports no additional hematologic/lymphatic complaints and Reports as per HPI Allergic/Immunologic: Reports no additional allergic/immunologic complaints and Reports as per HPI Physical Exam Vital Signs: Last Vital Signs Temp 97.4 F 03/04/24 07:00 Pulse 60 03/04/24 09:00 Resp 19 03/04/24 09:00 BP 125/56 L 03/04/24 09:00 Pulse Ox 99 03/04/24 09:00 O2 Del Method Room Air 03/04/24 09:00 O2 Flow Rate 1 03/02/24 18:55 BMI result Body Mass Index 34.5 Const General: comfortable and no acute distress Orientation/consciousness: patient oriented x3 HEENT Other: Unremarkable Head: Yes normal to inspection Neck Neck: Yes normal visual inspection Chest Chest palpation & inspection: normal inspection of the chest Resp Auscultation: clear to auscultation bilaterally Cardio Palpation: normal PMI Heart sounds: S1 normal heart sound present, S2 normal heart sound present, no gallops, no murmurs and no rubs GI Palpation (GI): Soft to palpation Back/Spine/Pelvis Other: unremarkable Skin General skin exam: no rashes or lesions noted Neuro General: patient oriented x3 Extrem General: Yes normal to inspection Psych Mental Status: mental status grossly normal Objective Labs and Meds 03/03/24 09:24 03/03/24 09:24 Lab results: Laboratory Results - last 24 hr 03/03/24 09:24 WBC 5.5 RBC 4.14 L Hgb 12.6 L Hct 36.4 L MCV 87.9 MCH 30.4 MCHC 34.6 RDW 12.4 Plt Count 191 MPV 10.0 Immature Gran % (Auto) 0.2 Neut % (Auto) 63.2 Lymph % (Auto) 25.9 [place] % (Auto) 8.9 Eos % (Auto) 1.3 Baso % (Auto) 0.5 Lymph # (Auto) 1.4 [place] # (Auto) 0.5 Eos # (Auto) 0.1 Baso # (Auto) 0.0 Abs Immat Gran (auto) 0.01 Absolute Neuts (auto) 3.5 Absolute Nucleated RBC 0.000 Nucleated RBC % (auto) 0.0 Sodium 139 Potassium 4.0 Chloride 101 Carbon Dioxide 29 Anion Gap 13 BUN 19 H Creatinine 1.50 H Estim Creat Clear Calc 70.8 Estimated GFR 48 Random Glucose 102 Calcium 9.7 Phosphorus 4.0 Magnesium 2.1 Total Bilirubin 0.7 AST 17 ALT 21 Alkaline Phosphatase 61 Total Protein 6.5 Albumin 3.8 Progress Note: A&P Assessment and plan (1) Sick sinus syndrome: Status: Acute (2) Bradycardia: Status: Acute (3) Atrial flutter with rapid ventricular response: Status: Acute Plan To summarize, patient with atrial flutter with rapid rate. Underwent cardioversion and then had asystole followed by sinus bradycardia requiring dopamine. As he continued to have bradycardia, he underwent permanent pacemaker as today. Pacemaker was checked today and he is pacing about 70% in the atrium. Otherwise, normal pacemaker function. May remain on beta-blockers and anticoagulation. Small bump in creatinine could be from bradycardia/diminished output. We can follow this as an outpatient. Will arrange follow-up in the clinic. Discussed with learning administrator. Discussed with patient using director digital catalogue. Time Spent With Patient Time: Total time managing care of this patient today ____ minutes. Progress Note: Quality Stroke Does the patient have a stroke diagnosis?: No Procedures Date of Service Date of Service: 03/04/24
--- NOTE | 2024-03-04 11:17 | HO.POSTANES ---
Post Anesthesia Evaluation Post Anesthesia Evaluation Date of Service: 03/04/24 Vital Signs: Vital Signs Temp Pulse Resp BP Pulse Ox O2 Del Method 03/04/24 10:00 71 17 110/43 L 98 Room Air 03/04/24 09:00 60 19 125/56 L 99 Room Air 03/04/24 08:00 60 21 H 120/65 97 Room Air 03/04/24 07:00 97.4 F 60 19 136/61 99 Room Air 03/04/24 05:54 14 121/64 97 Room Air 03/04/24 04:52 60 19 129/67 97 Room Air 03/04/24 03:57 61 17 124/61 95 Room Air 03/04/24 03:06 60 124/61 03/04/24 03:00 60 17 124/61 97 Room Air 03/04/24 02:00 60 22 H 127/62 96 Room Air 03/04/24 01:00 77 15 116/55 L 99 Room Air 03/04/24 00:00 97.5 F 76 19 116/96 H 96 Room Air Anesthesia: General LMA Mental Status: Awake Pain Control: Satisfactory Nausea/Vomiting: None Hydration: Adequate Anesthesia-Related Issues: No Anes. Related Issues
== END 2024-03-04 11:33 | disposition home or self-care (01) | DRG 243 ==
LOC: HO.SSSA 12:56 → HO.ICU 14:29
PROVIDERS: Internal Medicine; Internal Medicine Cardiovascular Disease; Admitting Provider Internal Medicine Critical Care Medicine; PCP Internal Medicine; Visit Provider Internal Medicine Critical Care Medicine
PROC: 5A2204Z Restoration of Cardiac Rhythm, Single (ICD-10-PCS; principal; 2024-03-02 11:00)
DX: I49.5 Sick sinus syndrome (principal); I48.92 Unspecified atrial flutter; I48.0 Paroxysmal atrial fibrillation; E78.5 Hyperlipidemia, unspecified; E66.9 Obesity, unspecified; Z68.34 Body mass index [BMI] 34.0-34.9, adult; Z79.01 Long term (current) use of anticoagulants; Z79.899 Other long term (current) drug therapy
CPT/HCPCS: 36415; 71045; 80053; 83605; 83735; 84100; 84443; 85025; 92960; 93005; 99212; A4364; C1785; C1892; C1894; C1898; J0461; J0613; J0690; J1170; J1265; J1596; J2371; J2405; J2704; J3370

== ENCOUNTER → 2024-03-02 12:47 | Outpatient (BNV) | payer OTHER, SELFPAY | PROVIDERS: Admitting Provider Internal Medicine Critical Care Medicine; PCP Internal Medicine; Visit Provider Internal Medicine Critical Care Medicine | DX: I48.92 Unspecified atrial flutter (principal); R00.1 Bradycardia, unspecified; E78.5 Hyperlipidemia, unspecified | CPT/HCPCS: 99291; 99499 ==

== ENCOUNTER → 2024-03-02 12:47 | Outpatient (BNV) | payer OTHER, SELFPAY | PROVIDERS: Admitting Provider Internal Medicine Critical Care Medicine; PCP Internal Medicine; Visit Provider Internal Medicine | DX: I48.92 Unspecified atrial flutter (principal); R00.1 Bradycardia, unspecified | CPT/HCPCS: 92960; 99223; 99233 ==

== ENCOUNTER 2024-03-16 15:31 | Outpatient (AMB) | payer OTHER, SELFPAY ==
[2024-03-16 15:33] VITALS: BP 100/62; PULSE 60; BMI 33.3
--- NOTE | 2024-03-16 15:33 | MHC.OFFVIS ---
Vital Signs 03/16/24 15:33 Height 6 ft 2 in Weight 259 lb 4.218 oz BMI 33.3 BP 100/62 Blood Pressure Location Lt brachial Position Sitting Pulse 60 Pulse Source Pulse Oximeter Intake Visit Reasons: wound check Family Reunification Specialist Required: Yes Family Reunification Specialist Language: Dry Cleaning Attendant Name: yousif cooley [phone] Allergies No Known Allergies [No Known Allergies*] Allergy (Verified 03/16/24 15:36) Medication List - Last Reconciled 03/16/24 by OTF BecerrilC apixaban (Eliquis) 5 mg PO BID 90 days cholecalciferol (vitamin D3) 125 mcg PO DAILY clonazepam 1 mg PO TID PRN hydrochlorothiazide 12.5 mg PO DAILY metoprolol succinate ER (Toprol XL) 50 mg PO DAILY 90 days morphine ER 60 mg PO BID omeprazole 40 mg PO DAILY oxycodone 30 mg PO Q8H PRN promethazine 25 mg PO Q4-6H PRN sennosides 8.6 mg PO BEDTIME HPI HPI wound check: Details: Jan is a 63-year-old male with past medical history of obesity, hyperlipidemia, newer finding of atrial flutter who recently underwent a cardioversion and had asystole, significant bradycardia requiring use of dopamine. He underwent dual-chamber pacemaker placement and now presents for follow-up. Today he reports that he has done well since his hospital discharge. He has some mild soreness at his pacemaker site. He has had no heart palpitations. No lightheadedness, presyncope, syncope, falls. He has been doing only light physical activity. No PND, orthopnea or edema. No chest discomfort at rest or with activity. Taking meds as directed. No bleeding issues reported. Family member present. Certified application security specialist used. 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) Alcohol intake: never Patient Tobacco Use Status: Never used Tobacco Review of Systems Const All systems reviewed & are unremarkable except as noted in HPI and below ENT Denies dizziness Card Details: minor discomfort at pacemaker site Denies chest pain, Denies chest pain at rest, Denies chest pain with activity, Denies rapid heart rate, Denies pedal edema, Denies edema, Denies leg edema, Denies lightheadedness, Denies palpitations, Denies dyspnea, Denies dyspnea on exertion and Denies orthopnea Resp Denies cough, Denies dyspnea and Denies dyspnea on exertion GI Denies hematochezia and Denies change in stool character Musc Denies abnormal gait, Denies limited range of motion, Denies muscle cramps, Denies muscle weakness, Denies numbness, Denies radiating pain into limb, Denies stiffness and Denies tingling Neuro Denies abnormal gait, Denies dizziness, Denies numbness and Denies tingling Endo Denies palpitations Physical Exam Vital Signs: Last Vital Signs Pulse 60 03/16/24 15:33 BP 100/62 03/16/24 15:33 BMI result Body Mass Index 33.3 Const General: cooperative, healthy appearing, comfortable and no acute distress Orientation/consciousness: patient oriented x3 Neck Neck: Yes normal visual inspection and Yes no JVD Chest Other: pacemaker site left upper chest - gauze and tegaderm dressing removed. Incision well approximated, skin glue in place, no redness, swelling, ecchimosis or drainage Resp Effort & Inspection: normal respiratory effort Auscultation: clear to auscultation bilaterally, no rales, no rhonchi and no wheezes Cardio Jugular venous distension: no JVD Rate: regular rate Rhythm: regular rhythm Heart sounds: S1 normal heart sound present, S2 normal heart sound present, no murmurs and no rubs Neuro General: patient oriented x3 Extrem General: Yes normal to inspection and No no pedal edema Psych Appearance: grossly normal Mental Status: mental status grossly normal Speech and movement: Normal speech and movement present Office Procedures Cardiac Device Check Cardiac Device Check Details: [employer] dual-chamber pacemaker interrogation today showing battery 6-7.8 years, atrial threshold 0.75 volts at 0.4 milliseconds, V threshold not performed, a pacing 86%, V pacing 1%, no AT or AF, no alerts [id number] Cardiac Device Check, pacemaker dual lead Procedure code (CPT) selection complete Assessment & Plan Assessment & Plan (1) Atrial flutter: Code(s): I48.92 - Unspecified atrial flutter Category: Medical Plan: Newer finding of atrial flutter. Echocardiogram done 11/19/2023 showed EF 56%, moderate increase in the LV wall thickness, basal inferior lateral akinetic. Has no known history of CAD or reported hypertension. A Holter monitor was done on 11/03/2023 showing atrial fibrillation with average heart rate 103, occasional PVCs. He was not initially started on anticoagulation likely due to low CHADS-VASc score, however it was started last month when he was seen by Dr. Bill. EKG at that time showed atrial flutter with RVR. He was started on metoprolol for heart rate control. On last visit he was set up for an outpatient cardioversion which was then done on 03/02/2024. He did have asystole after a synchronized shock followed by sinus bradycardia. He did receive glycopyrrolate and atropine. Did require dobutamine for ongoing sinus bradycardia. He was admitted to the ICU for close monitoring. A dual-chamber pacemaker was placed on 03/03/2024. His condition was then stabilized. He was discharged with metoprolol for rate control and Eliquis for anticoagulation. Today he reports feeling well since his hospital discharge. Device interrogation today shows it is functioning normally. He has had no recurrent atrial flutter since the pacemaker placement. No med changes made. Nuclear stress test is pending. Device interrogation do 6 weeks post insertion. Cardiology office visit in 2-3 months, sooner if needed. (2) LVH (left ventricular hypertrophy): Code(s): I51.7 - Cardiomegaly Category: Medical Plan: Noted on echocardiogram. No reported history of hypertension. Patient does have moderate obesity with BMI 34 (3) Shortness of breath: Code(s): R06.02 - Shortness of breath Category: Medical Plan: Symptom of shortness of breath with activity with atrial flutter rhythm. Currently denies shortness of breath. (4) Pacemaker: Code(s): Z95.0 - Presence of cardiac pacemaker Category: Medical Plan: [employer] dual-chamber pacemaker placed 03/03/2024 for sick sinus syndrome. Interrogation today shows it is functioning normally. Recheck with rep present in 1 month. Remote monitoring to be set up. Pacemaker site healing well without any signs of dehiscence or infection. Site care reviewed. Instructed to not raise his left arm over the level of the shoulder for an additional 2-3 weeks. (5) Sick sinus syndrome: Code(s): I49.5 - Sick sinus syndrome Category: Medical Plan: As above (6) Hospital discharge follow-up: Code(s): Z09 - Encounter for follow-up examination after completed treatment for conditions other than malignant neoplasm Category: Medical Plan: As above Plan Time spent on chart review, documentation, interview and assessment Coding Level of Care Code Est Pt Level 4 (77857) Diagnoses Atrial flutter I48.92 LVH (left ventricular hypertrophy) I51.7 Shortness of breath R06.02 Pacemaker Z95.0 Sick sinus syndrome I49.5 Hospital discharge follow-up Z09 CPT Codes Cardiac Device Check - Cardiac Device 2: [id number] Cardiac Device Check, pacemaker dual lead ([id number]) Time Spent (min) 30
== END 2024-03-16 16:23 | disposition home or self-care (01) ==
PROVIDERS: PCP Internal Medicine; Visit Provider Nurse Practitioner Family
DX: I48.92 Unspecified atrial flutter (principal); Z95.0 Presence of cardiac pacemaker
CPT/HCPCS: 93280; 99214

== ENCOUNTER → 2024-03-16 15:31 | Outpatient (BNVA) | payer OTHER, SELFPAY | PROVIDERS: PCP Internal Medicine; Visit Provider Nurse Practitioner Family | DX: Z45.018 Encounter for adjustment and management of other part of cardiac pacemaker (principal); Z09 Encounter for follow-up examination after completed treatment for conditions other than malignant neoplasm; I51.7 Cardiomegaly; I48.92 Unspecified atrial flutter; I49.5 Sick sinus syndrome; R06.02 Shortness of breath | CPT/HCPCS: 93280; 99212 ==

== ENCOUNTER 2024-03-21 11:09 | Outpatient (REF) | payer OTHER, SELFPAY ==
[2024-03-30 14:54] LABS: Testosterone, Free 17.2 pg/mL (35.0-155.0); Testosterone, Total 151 ng/dL (250-1100)
== END 2024-03-21 11:10 | disposition home or self-care (01) ==
LOC: HO.CHCLDS 11:09
PROVIDERS: Visit Provider Internal Medicine
DX: R79.89 Other specified abnormal findings of blood chemistry (principal)
CPT/HCPCS: 36415; 84402; 84403

== ENCOUNTER → 2024-03-21 23:59 | Outpatient (BNV) | payer OTHER, SELFPAY ==
--- NOTE | 2024-03-21 15:09 | A.OFFVIS_ITS ---
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 Overall normal device function. [id number] Cardiac Device Interrogation, pacemaker Procedure code (CPT) selection complete Assessment & Plan Assessment & Plan (1) Atrial flutter with rapid ventricular response: Code(s): I48.92 - Unspecified atrial flutter Category: Medical Plan x Coding Level of Care Code Procedure Only Diagnoses Atrial flutter with rapid ventricular response I48.92 CPT Codes Cardiac Device Check - Cardiac Device 12: [id number] Cardiac Device Interrogation, pacemaker ([id number])
== END ==
PROVIDERS: PCP Internal Medicine; Visit Provider Internal Medicine
DX: I48.92 Unspecified atrial flutter (principal); Z95.0 Presence of cardiac pacemaker
CPT/HCPCS: 93294

== ENCOUNTER 2024-04-03 11:20 | Outpatient (REF) | payer OTHER, SELFPAY ==
[2024-04-08 17:38] LABS: Testosterone, Total 73 ng/dL (250-1100)
== END 2024-04-03 11:21 | disposition home or self-care (01) ==
LOC: HO.CHCLDS 11:20
PROVIDERS: Visit Provider Internal Medicine
DX: R79.89 Other specified abnormal findings of blood chemistry (principal)
CPT/HCPCS: 36415; 84403

== ENCOUNTER 2024-06-01 15:09 | Outpatient (AMB) | payer OTHER, SELFPAY ==
--- NOTE | 2024-06-01 15:21 | AM.OFFVISNUR ---
Intake Visit Reasons: EKG and BP CK DC Allergies No Known Allergies [No Known Allergies*] Allergy (Verified 03/16/24 15:36) Nursing Note pt is here for ekg and bp ck ekg left with dr hernandez for review bp was 122/60 Office Procedures EKG [id number], Complete
== END 2024-06-01 15:34 | disposition home or self-care (01) ==
PROVIDERS: PCP Internal Medicine; Visit Provider Nurse Practitioner Family
DX: I48.92 Unspecified atrial flutter (principal)
CPT/HCPCS: 93010

== ENCOUNTER → 2024-06-01 15:09 | Outpatient (BNVA) | payer OTHER, SELFPAY | PROVIDERS: PCP Internal Medicine; Visit Provider Nurse Practitioner Family | DX: Z13.6 Encounter for screening for cardiovascular disorders (principal) | CPT/HCPCS: 93005 ==

== ENCOUNTER 2024-06-06 13:58 | Outpatient (AMB) | payer OTHER, SELFPAY ==
--- NOTE | 2024-06-06 14:01 | A.OFFVIS_ITS ---
Vital Signs 06/06/24 14:02 Height 6 ft 2 in Weight 276 lb 14.409 oz BMI 35.5 BP 110/56 L Blood Pressure Location Lt brachial Position Sitting Pulse 84 Intake Visit Reasons: 3mnth f/up Medical Scheduler Required: Yes Medical Scheduler Name: Jeffrey [id number]/yousif Accompanied by: Self / Same As Patient Allergies No Known Allergies [No Known Allergies*] Allergy (Verified 03/16/24 15:36) Medication List - Last Reconciled 06/06/24 by Huber Bill MD apixaban (Eliquis) 5 mg PO BID 90 days cholecalciferol (vitamin D3) 125 mcg PO DAILY clonazepam 1 mg PO TID PRN hydrochlorothiazide 12.5 mg PO DAILY metoprolol succinate ER (Toprol XL) 50 mg PO BID 30 days morphine ER 60 mg PO BID omeprazole 40 mg PO DAILY oxycodone 30 mg PO Q8H PRN promethazine 25 mg PO Q4-6H PRN sennosides 8.6 mg PO BEDTIME HPI Comments Details: Monitor returns for follow-up. To recall, he was seen regarding palpitations and detected to be in atrial flutter with rapid ventricular rate. Then underwent cardioversion, but he developed asystole following the procedure. Admitted to ICU and then was on dopamine drip and eventually underwent permanent pacemaker implantation. Currently, he states he is feeling fine but he is back in atrial flutter. [facility] Medical History (Updated 06/06/24 @ 14:30 by Huber Bill MD) Hospital discharge follow-up Bradycardia Polyarthralgia LVH (left ventricular hypertrophy) Atrial flutter Surgical History H/O hemicolectomy Hx of colostomy Family History Mother HTN (hypertension) Social History Household Members: None Housing: House Do you presently have visiting nurse or other home services: Yes ([employer]) Alcohol intake: never Patient Tobacco Use Status: Never used Tobacco Review of Systems Const Denies chills, Denies fatigue, Denies fever(s), Denies weight gain and Denies weight loss ENT Denies dizziness Card Denies chest pain, Denies leg edema, Denies lightheadedness, Denies palpitations, Denies dyspnea on exertion, Denies orthopnea and Denies other Resp Denies cough and Denies dyspnea on exertion GI Denies hematochezia and Denies change in stool character Musc Denies abnormal gait, Denies muscle weakness, Denies numbness, Denies radiating pain into limb and Denies tingling Neuro Denies abnormal gait, Denies dizziness, Denies numbness and Denies tingling Endo Denies fatigue and Denies palpitations Physical Exam Vital Signs: Last Vital Signs Pulse 84 06/06/24 14:02 BP 110/56 L 06/06/24 14:02 BMI result Body Mass Index 35.5 Const General: comfortable and no acute distress Orientation/consciousness: patient oriented x3 HEENT Other: Unremarkable Head: Yes normal to inspection Neck Neck: Yes normal visual inspection Chest Chest palpation & inspection: normal inspection of the chest Resp Auscultation: clear to auscultation bilaterally Cardio Palpation: normal PMI Heart sounds: S1 normal heart sound present, S2 normal heart sound present, no gallops, no murmurs and no rubs GI Palpation (GI): Soft to palpation Back/Spine/Pelvis Other: unremarkable Skin General skin exam: no rashes or lesions noted Neuro General: patient oriented x3 Extrem General: Yes normal to inspection Psych Mental Status: mental status grossly normal Office Procedures EKG Details: EKG with atrial flutter, ventricular rate of 84/Min. QRS widening probably related to left ventricular hypertrophy pattern. [id number], Complete Assessment & Plan Assessment & Plan (1) Paroxysmal atrial flutter: Code(s): I48.92 - Unspecified atrial flutter Category: Medical Plan: Recent cardioversion but he is back in flutter. Currently on beta-blockers and the dose has been increased. Also on anticoagulation. No overt symptoms. We will refer him to EP for flutter ablation. (2) Sick sinus syndrome: Code(s): I49.5 - Sick sinus syndrome Category: Medical Plan: Status post pacemaker implantation. (3) Atherosclerotic cardiovascular disease: Code(s): I25.10 - Atherosclerotic heart disease of [place] coronary artery without angina pectoris Category: Medical Plan: In the echocardiogram, LVEF 56%. Basal inferolateral akinesis. Per PCP note, a prior echocardiogram from 2018 also had inferior/lateral hypokinesis. Obtain stress test. Previously ordered but not completed. Orders: Orders CA lexiscan stress w rajendra Today I20.9 - Angina pectoris, unspecified, I48.92 - Unspecified atrial flutter Referrals Cardiac Electrophysiology Referral I48.92 - Unspecified atrial flutter Coding Level of Care Code Est Pt Level 4 (64842) Diagnoses Paroxysmal atrial flutter I48.92 Sick sinus syndrome I49.5 Atherosclerotic cardiovascular disease I25.10 CPT Codes EKG - CPT: 89582-[id number], Complete ([id number])
[2024-06-06 14:02] VITALS: BP 110/56; PULSE 84; BMI 35.5
== END 2024-06-06 14:33 | disposition home or self-care (01) ==
PROVIDERS: PCP Internal Medicine; Visit Provider Internal Medicine
DX: I48.92 Unspecified atrial flutter (principal); I49.5 Sick sinus syndrome; I25.10 Atherosclerotic heart disease of native coronary artery without angina pectoris
CPT/HCPCS: 93010; 99214

== ENCOUNTER → 2024-06-06 13:58 | Outpatient (BNVA) | payer OTHER, SELFPAY | PROVIDERS: PCP Internal Medicine; Visit Provider Internal Medicine | DX: I48.92 Unspecified atrial flutter (principal); I49.5 Sick sinus syndrome; I25.10 Atherosclerotic heart disease of native coronary artery without angina pectoris | CPT/HCPCS: 93005; 99212 ==

== ENCOUNTER 2024-07-12 10:33 | Outpatient (REF) | payer OTHER, SELFPAY ==
[2024-07-12 14:47] LABS: Prostate Specific Antigen 0.89 ng/mL (<0.05-4.0)
[2024-07-17 14:13] LABS: Testosterone, Total 103 ng/dL (250-1100)
== END 2024-07-12 10:34 | disposition home or self-care (01) ==
LOC: HO.CHCLDS 10:33
PROVIDERS: Visit Provider Internal Medicine
DX: Z12.5 Encounter for screening for malignant neoplasm of prostate (principal); R79.89 Other specified abnormal findings of blood chemistry
CPT/HCPCS: 36415; 84153; 84403

== ENCOUNTER → 2024-08-22 23:59 | Outpatient (BNV) | payer OTHER, SELFPAY ==
--- NOTE | 2024-08-31 19:41 | A.OFFVIS_ITS ---
Intake Visit Reasons: Remote device check- [facility] Allergies No Known Allergies [No Known Allergies*] Allergy (Verified 03/16/24 15:36) [facility] Medical History (Updated 06/06/24 @ 14:30 by Huber Bill MD) Hospital discharge follow-up Bradycardia Polyarthralgia LVH (left ventricular hypertrophy) Atrial flutter Surgical History H/O hemicolectomy Hx of colostomy Family History Mother HTN (hypertension) Social History Household Members: None Housing: House Do you presently have visiting nurse or other home services: Yes ([employer]) Alcohol intake: never Patient Tobacco Use Status: Never used Tobacco Office Procedures Cardiac Device Check Cardiac Device Check Details: Date of service- 08/22/2024 ; Battery life >5 years; normal lead parameters; AP 46%; 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 Overall normal device function. [id number] Cardiac Device Interrogation, pacemaker Procedure code (CPT) selection complete Assessment & Plan Assessment & Plan (1) Pacemaker: Code(s): Z95.0 - Presence of cardiac pacemaker Category: Medical (2) Sick sinus syndrome: Code(s): I49.5 - Sick sinus syndrome Category: Medical (3) Paroxysmal atrial flutter: Code(s): I48.92 - Unspecified atrial flutter Category: Medical Plan x Coding Level of Care Code Procedure Only Diagnoses Pacemaker Z95.0 Sick sinus syndrome I49.5 Paroxysmal atrial flutter I48.92 CPT Codes Cardiac Device Check - Cardiac Device 12: [id number] Cardiac Device Interrogation, pacemaker ([id number])
== END ==
PROVIDERS: PCP Internal Medicine; Visit Provider Internal Medicine
DX: I49.5 Sick sinus syndrome (principal); I48.92 Unspecified atrial flutter; Z95.0 Presence of cardiac pacemaker
CPT/HCPCS: 93294

== ENCOUNTER 2024-09-13 06:42 | Outpatient (REF) | payer OTHER, SELFPAY ==
[2024-09-17 16:38] LABS: Testosterone, Total 177 ng/dL (250-1100)
== END 2024-09-13 06:43 | disposition home or self-care (01) ==
LOC: HO.LAB 06:42
PROVIDERS: PCP Internal Medicine; Visit Provider Internal Medicine
DX: R79.89 Other specified abnormal findings of blood chemistry (principal)
CPT/HCPCS: 36415; 84403

== ENCOUNTER → 2025-04-09 09:35 | Outpatient (REF) | payer OTHER, SELFPAY ==
--- NOTE | ~2025-04-09 | NM_ITS ---
Lexiscan Myocardial perfusion study Indication: Atrial fibrillation to evaluate for myocardial ischemia Technique: The patient was brought in for a Lexiscan perfusion study on April 09, 2025 and was injected 0.4 mg of Lexiscan intravenously. Within a minute of this injection 30 mCi of sestamibi was given intravenously. Images were obtained using the SPECT gamma camera interlaced with the gating device. Images were obtained in supine position. Resting perfusion study was performed on April 10, 2025. Patient was administered 30 mCi of sestamibi intravenously at rest. Images were then obtained in supine position. Images obtained without without CT attenuation. Total DLP 118 mGy-cm. Images were processed with the software and compared side to side in short axis, horizontal long axis and vertical long axis views. Findings: The stress perfusion study showed nonattenuated images show moderately reduced uptake in the inferior wall of the LV myocardium. Remainder of the LV myocardium is normally perfused. Attenuated corrected images show moderately reduced uptake in the apex of the LV myocardium.. The gated study shows normal LV systolic function with calculated LVEF of 61%. LV cavity is mildly dilated in size. The gated study shows normal systolic wall thickening and contraction of segments. Resting study shows no change in perfusion study compared to stress perfusion study. Gating at rest reveals normal systolic wall motion with ejection fraction at greater than 55%. The findings are consistent with known reversible defect. Likely normal myocardial perfusion. NM/NM rajendra perf SPECT rest & str Impression: 1. Myocardial perfusion imaging study shows likely normal myocardial perfusion 2. Gated LVEF is 61% 3. Transient ischemic dilatation not present but LV cavity appears to be dilated Nondiagnostic changes on EKG. Electronically signed by: Nito Kruger MD 04/10/2025 05:57 PM EDT
--- NOTE | 2025-04-09 09:37 | CA_ITS ---
Acquisition Time: 2025-04-09 09:43:29 Total Exercise Time: 00:02:00 Test Indications: AFLUTTER/BRADYCARDIA Medications: SEE H&P Protocol: LEXISCAN Max HR: 83 BPM 52% of Pred: 158 BPM Max BP: 134/68 mmHG Max Work Load: 1.0 METS Pharmacological stress test with Lexiscan while pt moves his legs in chair, with reports of feeling warm and fatigue, with isolated PACs, brief atrial run- 4 beats, with normotensive response to injection. Nondiagnostic EKG for ischemia. In recovery, with Twave inversions inferolaterally, nonspecific ST- T waves at baseline. Pt feeling back to baseline. Nuclear images pending. Test reviewed with Dr. Kruger. Referred By: Huber Bill Electronically Signed By: Justen Ramirez
--- OUTSIDE RECORDS SUMMARY | 2025-04-09 10:14 | XMS_ITS | Encounter Summary ---
Author Organization [employer] Address [address] [place] [address] Care Team Providers Care Portainer Operator Name Role Phone Torres Mcguire MD Primary Care Provider Reason for Visit * Reason Onset Date Comments triage 02/09/2023 Encounter Details Date Type Department Care Team ([facility] Contact Info) Description 02/09/2023 Telephone [facility] MED & PEDS [address] [place], [place] [phone] Torres Mcguire MD [address] [place] [address] triage Social History Tobacco Use Types Packs/Day Years Used Date Smoking Tobacco: Never Sex and Gender Information Value Date Recorded Sex Assigned at Male 08/31/2022 10:15 AM EDT Legal Sex Male 10:15 AM EDT Gender Identity Male 08/31/2022 10:15 AM EDT Sexual Orientation Straight 08/31/2022 10 :15 AM EDT COVID-19 Exposure Response Date Recorded In the last 10 days, have yo u been in contact with someone who was confirmed or suspected to have Coronavirus/COVID-19? No / Unsure 02/12/2023 3:06 PM EDT documented as of this encounter Miscellaneous Notes * Telephone Encounter - Myrtle Altamirano RN - 02/09/2023 4:57 PM EDT Triage call with [employer] Drawer ID [id number] Pt reports home care program sent doctor to see Pt. It was noted that bilateral feet to ankles had swelling and bilateral hands. Pt reports this is new, no difficulty walking and wears shoes without difficulty. Pt denies difficulty breathing but, reports BP was high last time Pt had visit. Pt is r equesting a referral to kidney specialist as this was recommended by home care program. apt with PCP 02/12 @ 315pm Pt agrees with disposition and home care reviewed. Protocol Used: Leg Swelling and Edema (Adult) Protocol-Based Disposition: See in Office or Video Visit within 3 Days Video visit not offered Positive Triage Question: * Mild swelling of both ankles (i.e., pedal edema) AND new-onset or worsening * All higher-acuity triage questions were negative Care Advice Discussed: * Leg Swelling or Edema * Reasons To Call Back - Swelling becomes worse - Swelling becomes red or painful to the touch - Calf pain occurs and becomes constant - You become worse * Telephone Encounter - Deirdre Ji - 02/09/2023 3:29 PM EDT Symptom: Foot or Ankle Swelling Outcome: Schedule an urgent appointment (within 1 hour) or talk to a nurse or provider soon Reason: Trouble walking The caller accepted this outcome documented in this encounter Plan of Treatment Not on file documented as of this encounter Visit Diagnoses Not on filedocumented in this encounter Care Teams Portainer Operator Relationship Specialty Start Date End Date Torres Mcguire MD [address] [place] [id number] PCP - General Internal Medicine 02/23/18 Ismael Bland Consulting Physician Oncology 10/19/23 Tim Howard Consulting Physician Psychiatry 10/19/23 documented as of this encounter
== END ==
LOC: HO.CARD 09:35
PROVIDERS: PCP Internal Medicine; Visit Provider Nurse Practitioner Family
DX: I20.9 Angina pectoris, unspecified (principal); I48.92 Unspecified atrial flutter
CPT/HCPCS: 78452; 93017; A9500; J0280; J2785

== ENCOUNTER → 2025-04-09 09:37 | Outpatient (BNV) | payer OTHER, SELFPAY | PROVIDERS: PCP Internal Medicine | DX: I49.1 Atrial premature depolarization (principal); R94.31 Abnormal electrocardiogram [ECG] [EKG] | CPT/HCPCS: 78452; 93016; 93018 ==

== ENCOUNTER → 2025-04-20 23:59 | Outpatient (BNV) | payer OTHER, SELFPAY ==
--- NOTE | 2025-04-22 09:10 | MHC.OFFVIS ---
Intake Visit Reasons: remote device check- [facility] Allergies No Known Allergies (No Known Allergies*) Allergy (Verified 03/16/24 15:36) [facility]LY [facility] Medical History (Updated 06/06/24 @ 14:30 by Huber Bill MD) Hospital discharge follow-up Bradycardia Polyarthralgia LVH (left ventricular hypertrophy) Atrial flutter Surgical History H/O hemicolectomy Hx of colostomy Family History Mother HTN (hypertension) Social History Household Members: None Housing: House Do you presently have visiting nurse or other home services: Yes ([employer]) Alcohol intake: never Patient Tobacco Use Status: Never used Tobacco Office Procedures Cardiac Device Check Cardiac Device Check Details: Date of service- 04/20/2025 ; Battery life >4 years; normal lead parameters; AP 75%; 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 Overall normal device function. [id number] Cardiac Device Interrogation, pacemaker Procedure code (CPT) selection complete Assessment & Plan Assessment & Plan (1) Pacemaker: Code(s): Z95.0 - Presence of cardiac pacemaker Category: Medical (2) Paroxysmal atrial flutter: Code(s): I48.92 - Unspecified atrial flutter Category: Medical Plan x Coding Level of Care Code Procedure Only Diagnoses Pacemaker Z95.0 Paroxysmal atrial flutter I48.92 CPT Codes Cardiac Device Check - Cardiac Device 12: [id number] Cardiac Device Interrogation, pacemaker ([id number])
== END ==
PROVIDERS: PCP Internal Medicine; Visit Provider Internal Medicine
DX: I48.92 Unspecified atrial flutter (principal); Z95.0 Presence of cardiac pacemaker
CPT/HCPCS: 93294

== ENCOUNTER 2025-06-04 14:20 | Outpatient (AMB) | payer OTHER, SELFPAY ==
--- OUTSIDE RECORDS SUMMARY | 2025-06-04 14:27 | XMS_ITS | Encounter Summary ---
Author Organization [employer] Address [address] [facility] [address] [place] [address] Care Team Providers Care Crew Truck Driver Name Role Phone Torres Mcguire MD Primary Care Provider Reason for Visit * Reason Onset Date Comments triage 02/09/2023 Encounter Details Date Type Department Care Team ([facility] Contact Info) Description 02/09/2023 Telephone [facility] CH[facility] MED & PEDS [address] [place], [place] [phone] Torres Mcguire MD [address] [place] [address] triage Social History Tobacco Use Types Packs/Day [...] 02/09/2023 4:57 PM EDT Triage call with [employer] Senior Java Programmer Analyst ID [id number] Pt reports home care program sent doctor [...] on filedocumented in this encounter Care Teams Crew Truck Driver Relationship Specialty Start Date End Date Torres Mcguire MD [address] [place] [id number] PCP - General Internal Medicine 02/23/18 Ismael Bland Consulting Physician Oncology 10/19/23 Tim Howard Consulting Physician Psychiatry 10/19/23 documented as of this encounter
--- OUTSIDE RECORDS SUMMARY | 2025-06-04 14:27 | XMS_ITS | Clinical Summary ---
Author Organization [facility] Address [address] [place] [address] Care Team Providers Care Floor Coverer Name Role Phone Torres Mcguire MD Primary Care Provider [phone] Allergies No known active allergies Medications Medication Sig Dispensed Refills Start Date End Date Status Pgfzymjhnx-Gczhefa-T affeine (FIORINAL PO) Take 325 mg by mouth as needed. 0 Active VITAMIN D, CHOLECALCIFEROL, PO Take by mouth once a week. 0 Active vitamin C (ASCORBIC ACID) 500 MG tablet Take 1 tablet (500 mg total) by mouth daily. On empty stomach with ferrous sulfate 100 tablet 3 10/20/2017 Active polyethylene glycol (MIRALAX) 17 g packet DISSOLVE THE CONTENTS OF 1 PACKET IN LIQUID AND TAKE BY MOUTH EVERY DAY 100 each 5 04/05/2023 Active promethazine (PHENERGAN) tablet 25 mg TAKE 1 TABLET BY MOUTH EVERY 12 HOURS NEEDED FOR NAUSEA 60 tablet 11 09/07/2023 Active hydrocortisone (ANUSOL-HC) 2.5 % CREA perianal cream Place around the anus 2 (two) times a day. 28 g 5 09/17/2023 Active omeprazole (PriLOSEC) 40 MG capsule TAKE 1 CAPSULE(40 MG) BY MOUTH DAILY 30 capsule 2 08/30/2024 Active Morphine Sulfate ER (MS CONTIN) 60 MG TBCR Take 1 tablet (60 mg total) by mouth every 8 (eight) hours. Partial fill allowed 90 tablet 0 08/30/2024 Active oxyCODONE (ROXICODONE) 30 MG immediate release tablet Take 1 tablet (30 mg total) by mouth every 8 (eight) hours as needed for pain. 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 Family History Relation Name Status Comments Father Social History Tobacco Use Types Packs/Day Years Used Date Smoking Tobacco: Never Smokeless Tobacco: Never Alcohol Use Standard Drinks/Week Comments No 0 (1 standard drink = 0.6 oz pur e alcohol) Sex and Gender Information Value Date Recorded Sex Assigned at Not on file Gender Identity Not on file Sexual Orientation Not on file Job Start Date Occupation Industry Not on file Not on file Not on file Last Filed Vital Signs Vital Sign Reading Time Taken Comments Blood Pressure 111/66 03/31/2024 1:51 PM EDT Pulse 77 03/31/2024 1:51 PM EDT Temperature 36.2 C (97.2 F) 03/31/2024 1:51 PM EDT Respiratory Rate - - Oxygen Saturation 100% 03/31/2024 1:51 PM EDT Inhaled Oxygen Concentration - - Weight 117.8 kg (259 lb 12.8 oz) 03/31/2024 1:51 PM EDT Height 183.1 cm (6' 0.1 ) 03/31/2024 1:51 PM EDT Body Mass Index 35.14 03/31/2024 1:51 PM EDT Plan of Treatment Health Maintenance Due Date Last Done Comments Hepatitis C Screening 1962 Depression Screening 1974 BMI Counseling 1980 Preventative Health Evaluation 1980 Shingrix-Zoster Vaccine (1 of 2) 1981 Colon Cancer Screening (Colonoscopy) 2007 Pneumococcal Vaccine (2 of 2 - PCV) 05/10/2016 05/10/2015 COVID-19 Vaccine (3 - Pfizer risk series) 01/02/2021 12/05/2020, 11/14/2020 DTap / Tdap / Td (2 - Td or Tdap) 03/12/2025 03/12/2015 Influenza Vaccine (#1) 2025 9, 07/28/2018, 08/06/2017, Additional history exists RSV Adult > 60+ Yrs or (1 - 1-dose 75+ series) 2037 Hepatitis B Vaccines Aged Out No long er eligible based on patient's age to complete this topic RSV Ped < 20 months Aged Out No longe r eligible based on patient's age to complete this topic Care Teams Floor Coverer Relationship Specialty Start Date End Date Torres Mcguire MD [address] [place], [place] [address] [id number] PCP - General Internal Medicine 01/21/23
--- OUTSIDE RECORDS SUMMARY | 2025-06-04 14:27 | XMS_ITS | Clinical Summary ---
Author Organization [facility] Address [address] [place] [address] Care Team Providers Care Extractor Loader And Unloader Name Role Phone Unavailable Primary Care Provider Unavailabl e Source Comments PLEASE NOTE, if this patient is a minor, it may be UNLAWFUL to discuss sensitive information that is contained in these records (such as FAMILY PLANNING, MENTAL HEALTH or SUBSTANCE ABUSE) with the minor patient's parent or other person without the patient's specific authorization.[facility] Allergies No known active allergies Social History Tobacco Use Types Packs/Day Years Used Date Smoking Tobacco: Never Alcohol Use Standard Drinks/Week Comments Not Asked 0 (1 standard drink = 0.6 oz pur e alcohol) Sex and Gender Information Value Date Recorded Sex Assigned at Not on file Legal Sex Male 9:31 AM PST Gender Identity Not on file Sexual Orientation Not on file Last Filed Vital Signs Vital Sign Reading Time Taken Comments Blood Pressure 130/90 10/17/2015 2:49 PM EST Pulse 100 10/17/2015 2:49 PM EST Temperature 36.6 C (97.9 F) 10/17/2015 2:49 PM EST Respiratory Rate 28 10/17/2015 2:49 PM EST Oxygen Saturation - - Inhaled Oxygen Concentration - - Weight 117 kg (258 lb) 10/17/2015 2:49 PM EST Height 178 cm (5' 10.08 ) 10/17/2015 2:49 PM EST Body Mass Index 36.94 10/17/2015 2:49 PM EST Plan of Treatment Not on file [place] [facility]
--- OUTSIDE RECORDS SUMMARY | 2025-06-04 14:27 | XMS_ITS | Clinical Summary ---
Author Organization [address] [place] [address] Address [address] [place] [address] Phone Care Team Providers Care Deputy Register Of Deeds Name Role Phone Torres Mcguire MD Primary Care Provider [phone] Allergies No known active allergies Medications butalbital-as pirin-caffein e (FIORINAL) 50-325-40 mg per capsule Take 325 mg by mouth. As needed Active hydrocortison e (ANUSOL-HC) 2.5 % rectal cream Insert into the rectum 2 (two) times a day. 09/17/20 23 Active promethazine (PHENERGAN) 25 mg tablet TAKE 1 TABLET BY MOUTH EVERY 12 HOURS NEEDED FOR NAUSEA 60 tablet 5 09/12/20 24 Active Eliquis 5 mg tablet Take 1 tablet (5 mg total) by mouth 2 (two) times a day. Active cholecalcifer ol (VITAMIN D-3) 125 mcg (5,000 unit) capsule Take 1 capsule (5,000 Units total) by mouth 1 (one) time each day in the morning. Active hydroCHLOROth iazide 12.5 mg tablet Take 1 tablet (12.5 mg total) by mouth daily. 11/04/19 24 Active gabapentin (NEURONTIN) 300 mg capsule Take 1 capsule (300 mg total) by mouth. 07/08/20 17 Active ferrous sulfate 325 mg (65 mg elemental iron) tablet Take 1 tablet (325 mg total) by mouth 1 (one) time each day. Active metoprolol succinate (TOPROL-XL) 100 mg 24 hr tablet Take 1 tablet (100 mg total) by mouth 2 (two) times a day. 10/09/20 24 Active mirtazapine (REMERON) 15 mg tablet TAKE 1 TABLET BY MOUTH AT BEDTIME FOR SLEEP OR MOOD Active clonazePAM (KlonoPIN) 1 mg tablet Take 1 tablet (1 mg total) by mouth 3 (three) times a day if needed. for anxiety 10/06/20 24 Active polyethylene glycol (Golytely) 236-22.74-6.7 4 -5.86 gram solution Take 4L by mouth once for one dose. May substitue any PEG. Starting at 6PM the night before your procedure drink 1 8oz glasses at your own pace until you complete half of the gallon. Finish 2nd half of the gallon 5 hours before your procedure. 4000 mL 11/22/19 25 Active bisacodyL (DULCOLAX) 5 mg EC tablet Take 2 tablets by mouth right before beginning bowel prep. See instructions provided by the office 2 tablet 11/22/19 25 Active omeprazole (PriLOSEC) [address] capsule TAKE 1 CAPSULE(40 MG) BY MOUTH DAILY 90 capsule 3 05/01/20 25 026 Active oxyCODONE (ROXICODONE) 30 mg immediate release tabletIndicat ions:Rectal cancer (CMS/HCC V24, CMS/HCC V28) Take 1 tablet (30 mg total) by mouth every 4 (four) hours if needed for severe pain. Partial fill allowed Max Daily Amount: 180 mg 180 tablet 05/10/20 25 Active polyethylene glycol (MIRALAX) 17 gram packet Take 17 g by mouth 1 (one) time each day. 30 each 5 05/15/20 25 026 Active morphine (MS CONTIN) 60 mg 12 hr tabletIndicat ions:Rectal cancer (CMS/HCC V24, CMS/HCC V28) Take 1 tablet (60 mg total) by mouth 2 (two) times a day. Max Daily Amount: 120 mg 60 tablet 05/15/20 25 Active polyethylene glycol (MIRALAX) 17 gram packet Take 17 g by mouth 1 (one) time each day. Every other day. Disolve the contents of packet in liquid. 30 packet 2 09/13/20 24 025 Discontinued oxyCODONE (ROXICODONE) 30 mg immediate release tabletIndicat ions:Rectal cancer (CMS/HCC V24, CMS/HCC V28) Take 1 tablet (30 mg total) by mouth every 4 (four) hours if needed for severe pain. Partial fill allowed Max Daily Amount: 180 mg 180 tablet 04/12/20 25 025 Discontinued(R eorder) morphine (MS CONTIN) 60 mg 12 hr tabletIndicat ions:Rectal cancer (CMS/HCC V24, CMS/HCC V28) Take 1 tablet (60 mg total) by mouth 2 (two) times a day. Max Daily Amount: 120 mg 60 tablet 04/12/20 25 025 Discontinued(R eorder) morphine (MS CONTIN) 60 mg 12 hr tabletIndicat ions:Rectal cancer (CMS/HCC V24, CMS/HCC V28) Take 1 tablet (60 mg total) by mouth 2 (two) times a day. Max Daily Amount: 120 mg 60 tablet 05/10/20 25 025 Discontinued(R eorder) morphine (MS CONTIN) 60 mg 12 hr tabletIndicat ions:Rectal cancer (CMS/HCC V24, CMS/HCC V28) Take 1 tablet (60 mg total) by mouth 2 (two) times a day. Max Daily Amount: 120 mg 60 tablet 05/15/20 25 025 Discontinued(R eorder) Active Problems Problem Noted Date Diagnosed Date Neuropathy due to chemotherapeutic drug ([facility] V24) 04/26/2017 Rectal cancer ([facility] V24, CMS/[facility] V28) 017 Immunizations Name Administration Dates Next Due Phizzle SARS-CoV-2 COVID-19, mRNA, LNP-S, preservative free 12/05/2020,11/14/2020 Surgical History Surgery Date Site/Laterality Comments APPENDECTOMY PROCEDURE:APPENDECTOMY COLOSTOMY PROCEDURE:COLOSTOMY COLON SURGERY PROCEDURE:COLON SURGERY COLONOSCOPY PROCEDURE:COLONOSCOPY OTHER SURGICAL HISTORY PROCEDURE:HEMORROIDECTOMY Medical History Medical History Date Comments Rectal cancer (CMS/HCC V24, CMS/HCC V28) DX:Rectal cancer (HCC) Colon cancer (CMS/HCC V24, CMS/HCC V28) DX:Colon cancer (HCC) Anemia DX:Anemia Pacemaker Family History Relation Name Status Comments Father Social History Tobacco Use Types Packs/Day Years Used Date Smoking Tobacco: Never Smokeless Tobacco: Never Tobacco Cessation:Counseling Given: Not Answered Alcohol Use Standard Drinks/Week Comments No 0 (1 standard drink = 0.6 oz pur e alcohol) Interpersonal Safety Answer Date Record ed Physical Abuse 01/11/2025 Verbal Abuse 01/11/2025 Sex and Gender Information Value Date Recorded Sex Assigned at Male 01/10/2025 2:18 PM EDT Legal Sex Male 2:17 AM EST Gender Identity Male 01/10/2025 2:18 PM EDT Sexual Orientation Straight 01/10/2025 2: 18 PM EDT Obstetrics History Last Filed Vital Signs Vital Sign Reading Time Taken Comments Blood Pressure 124/58 01/23/2025 2:24 PM EDT Pulse 59 01/23/2025 2:24 PM EDT Temperature 36.1 C (97 F) 01/23/2025 2:24 PM EDT Respiratory Rate 18 01/11/2025 1:23 PM EDT Oxygen Saturation 100% 01/23/2025 2:24 PM EDT Inhaled Oxygen Concentration - - Weight 122 kg (268 lb) 01/23/2025 2:24 PM EDT Height 188 cm (6' 2 ) 01/11/2025 12:11 PM EDT Body Mass Index 34.41 01/11/2025 12:11 PM EDT Plan of Treatment Upcoming Encounters Date Type Department Care Team (Late st Contact Info) Description 07/26/2025 2:30 PM EDT Office Visit [facility] Hematology Oncology [address] [place] [address] Ismael Bland MD [address] [place] [address] Health Maintenance Due Date Last Done Comments Zoster Vaccines (1 of 2) 1981 Pneumococcal Vaccine: 50+ Years (2 of 2 - PCV) 05/10/2016 05/10/2015 HIV Screening 10/10/2022 Hepatitis C Screening 10/10/2022 Medicare Annual Wellness Visit 10/10/2022 Social Influencers of Health Screening 10/10/2022 COVID-19 Vaccine ( season) 2024 10/29/2021, 12/05/2020, 11/14/2020 Depression Screening 11/01/2024 DTaP,Tdap,and Td Vaccines (2 - Td or Tdap) 03/12/2025 03/12/2015 Influenza Vaccine (#1) 2025 9, 07/28/2018, 08/06/2017, Additional history exists Cholesterol Screening (Lipid Panel) 03/05/2026 03/05/2021, 03/05/2021 Colorectal Cancer Screening: Colonoscopy 05/02/2030 05/02/2025, 01/11/2025 RSV Immunization Adult Patients (1 - 1-dose 75+ series) 2037 HIB Vaccines Aged Out No longer eligi ble based on patient's age to complete this topic HPV Vaccines Aged Out No longer eligi ble based on patient's age to complete this topic Hepatitis A Vaccines Aged Out No long er eligible based on patient's age to complete this topic Hepatitis B Vaccines Aged Out No long er eligible based on patient's age to complete this topic IPV Vaccines Aged Out No longer eligi ble based on patient's age to complete this topic MMR Vaccines Aged Out No longer eligi ble based on patient's age to complete this topic Meningococcal ACWY Vaccine Aged Out N o longer eligible based on patient's age to complete this topic Meningococcal B Vaccine Aged Out No l onger eligible based on patient's age to complete this topic RSV Immunization Patients Under 20 months Aged Out No longer eligible based on patient's age to complete this topic Varicella Vaccines Aged Out No longer eligible based on patient's age to complete this topic Medical Devices Implanted Type Area Card Punching Machine Operator Device Identifier Shelf Expiration Date Model / Serial / Lot Cardiac Pacemaker Cardiac Pacemaker Left: Chest Procedures Procedure Name Priority Date/Time Associated Diagnosis Comments EXTERNAL COLONOSCOPY REPORT Routine 05/02/2025 3:04 PM EDT LIPID PANEL Routine 03/05/2021 from Last 3 Months or Most Recently Relevant to Health Maintenance Results * External Colonoscopy Report (05/02/2025 3:04 PM EDT) Anatomical Region Laterality Modality Endoscopy us Historical Provider GI~PROCEDURE ORDERABLES F inal Result * Lipid panel (03/05/2021) LDL/HDL Ratio 0 Triglycerides 0 mg/dL Cholesterol 0 mg/dL HDL 0 mg/dL LDL Cholesterol 0 mg/dL Blood Venous blood specimen / Unknown us Historical Provider LAB BLOOD ORDERABLES Isabel l Result from Last 3 Months or Most Recently Relevant to Health Maintenance Insurance [facility] MEDICARE Member Subscriber Plan / Payer (Ef fective 2018-Present) Name:JAN HARDING Relation to Subscriber:Self Name:Jan Harding Payer ID:[id number] Group ID:[id number] Type:Not on file Address: [place] [address] [place] [phone] Care Teams Deputy Register Of Deeds Relationship Specialty Start Date End Date Torres Mcguire MD [address] [place] [address] PCP - General Internal Medicine 01/04/19
[2025-06-04 15:22] VITALS: BP 120/72; PULSE 111; BMI 34.0
--- NOTE | 2025-06-04 15:22 | A.OFFVIS_ITS ---
Vital Signs 06/04/25 15:22 Height 6 ft 2 in Weight 264 lb 8.875 oz BMI 34.0 BP 120/72 Blood Pressure Location Lt brachial Position Sitting Pulse 111 H Pulse Source Monitor Intake Visit Reasons: follow up w/ device ck Retail Leasing Agent Required: Yes Retail Leasing Agent Language: Bus Starter Name: voice telles [id number] Allergies No Known Allergies (No Known Allergies*) Allergy (Verified 06/04/25 15:23) Medication List - Last Reconciled 06/04/25 by Darlene Hernández NP-C apixaban (Eliquis) 5 mg PO BID cholecalciferol (vitamin D3) 125 mcg PO DAILY clonazepam 1 mg PO TID PRN hydrochlorothiazide 12.5 mg PO DAILY metoprolol succinate ER 100 mg PO BID morphine ER 60 mg PO BID omeprazole 40 mg PO DAILY oxycodone 30 mg PO Q8H PRN promethazine 25 mg PO Q4-6H PRN sennosides 8.6 mg PO BEDTIME HPI HPI follow up w/ device ck: Details: Jan is a 64-year-old male with past medical history of obesity, hyperlipidemia, atrial flutter with prior cardioversion resulting in brief asystole, significant bradycardia requiring use of dopamine. He then underwent dual-chamber pacemaker placement. He did have recurrent a flutter and was referred to EP. Consult no in our system. Patient states he has never had an ablation. He now presents for follow-up and device check. Today he reports that he has been feeling good. He does notice that his heart does go fast at times. No lightheadedness, presyncope, syncope, falls. No chest discomfort at rest or with activity. No shortness of breath, PND, orthopnea or edema. Taking meds as directed. No bleeding issues reported. Certified airframe and power plant mechanic used. 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) Alcohol intake: never Patient Tobacco Use Status: Never used Tobacco Review of Systems Const All systems reviewed & are unremarkable except as noted in HPI and below ENT Denies dizziness Card Denies chest pain, Denies chest pain at rest, Denies chest pain with activity, Reports rapid heart rate, Denies pedal edema, Denies edema, Denies leg edema, Denies lightheadedness, Denies palpitations, Denies dyspnea, Denies dyspnea on exertion and Denies orthopnea Resp Denies cough, Denies dyspnea and Denies dyspnea on exertion GI Denies hematochezia and Denies change in stool character Musc Denies abnormal gait, Denies limited range of motion, Denies muscle cramps, Denies muscle weakness, Denies numbness, Denies radiating pain into limb, Denies stiffness and Denies tingling Neuro Denies abnormal gait, Denies dizziness, Denies numbness and Denies tingling Endo Denies palpitations Physical Exam Vital Signs: Last Vital Signs Pulse 111 H 06/04/25 15:22 BP 120/72 06/04/25 15:22 BMI result Body Mass Index 34.0 Const General: cooperative, healthy appearing, comfortable and no acute distress Orientation/consciousness: patient oriented x3 HEENT Head: Yes normal to inspection Neck Neck: Yes normal visual inspection Resp Effort & Inspection: normal respiratory effort Auscultation: clear to auscultation bilaterally, no rales, no rhonchi and no wheezes Cardio Jugular venous distension: no JVD Rate: tachycardic Rhythm: regular rhythm Heart sounds: S1 normal heart sound present, S2 normal heart sound present, no murmurs and no rubs Neuro General: patient oriented x3 Extrem General: Yes normal to inspection, No no pedal edema and No calf tenderness Psych Appearance: grossly normal Mental Status: mental status grossly normal Speech and movement: Normal speech and movement present Office Procedures Cardiac Device Check Cardiac Device Check Details: [employer] dual-chamber pacemaker interrogation, DDD mode, low rate 60, battery 4.7-6.3 years, right ventricular threshold 0.5 volts at 0.4 milliseconds, PVAB to 100 for a flutter AMS detection. Frequent brief high V rates, mode switches indicating paroxysmal atrial flutter [id number] Cardiac Device Check, pacemaker dual lead Procedure code (CPT) selection complete EKG Details: Today, read by me, atrial flutter, can not rule out prior anterior infarct, ST and T-wave abnormality lateral leads, rate 111, QTC 465 milliseconds [id number], Complete Assessment & Plan Assessment & Plan (1) Atrial flutter: Code(s): I48.92 - Unspecified atrial flutter Category: Medical Plan: Newer finding of atrial flutter, early 2023. Echocardiogram done 11/19/2023 showed EF 56%, moderate increase in the LV wall thickness, basal inferior lateral akinetic. Holter monitor was done on 11/03/2023 showing atrial fibrillation with average heart rate 103, occasional PVCs. He was treated with beta-velma and Eliquis for anticoagulation. Outpatient cardioversion 03/02/2024 and he did have asystole after a synchronized shock followed by sinus bradycardia, requiring glycopyrrolate, atropine then dobutamine for ongoing sinus bradycardia. He was admitted to the ICU and A dual-chamber pacemaker was placed on 03/03/2024. He then had recurrent atrial flutter and was referred to electrophysiology and seen by Dr. Umana 07/12/24. Patient states he never underwent ablation. EKG done today is showing atrial flutter, rate 111. Device interrogation does show paroxysmal atrial flutter. Will add diltiazem CD 120 mg daily to help with rate control. Continue metoprolol XL 100 mg b.i.d.. Continue Eliquis 5 mg b.i.d.. Will refer back to electrophysiology for atrial flutter ablation. He is agreeable to this plan. Cardiology follow-up 3 months, sooner if needed. (2) LVH (left ventricular hypertrophy): Code(s): I51.7 - Cardiomegaly Category: Medical Plan: Noted on echocardiogram. No reported history of hypertension. Patient does have moderate obesity with BMI 34 (3) Pacemaker: Comment: [employer] dual-chamber pacemaker 03/03/2024 Code(s): Z95.0 - Presence of cardiac pacemaker Category: Medical Plan: [employer] dual-chamber pacemaker placed 03/2024 for sick sinus syndrome. Interrogation today shows it is functioning normally. Remote monitoring in use. Pacer site benign office interrogation due in 6 months (4) Sick sinus syndrome: Code(s): I49.5 - Sick sinus syndrome Category: Medical Plan: As above Plan Time spent on chart review, documentation, interview and assessment Orders: Referrals Cardiac Electrophysiology Referral I48.92 - Unspecified atrial flutter Medications: New diltiazem HCl CD (Cartia XT) new 120 mg PO DAILY 30 caps 4RF Coding Level of Care Code Est Pt Level 4 (56983) Complex EM visit Add On G2211 Diagnoses Atrial flutter I48.92 LVH (left ventricular hypertrophy) I51.7 Pacemaker Z95.0 Sick sinus syndrome I49.5 CPT Codes Cardiac Device Check - Cardiac Device 2: [id number] Cardiac Device Check, pacemaker dual lead ([id number]) EKG - CPT: 15407-[id number], Complete ([id number]) Time Spent (min) 34
== END 2025-06-04 16:04 | disposition home or self-care (01) ==
LOC: HO.HCS 14:20
PROVIDERS: PCP Internal Medicine; Visit Provider Nurse Practitioner Family
DX: I48.92 Unspecified atrial flutter (principal); I51.7 Cardiomegaly; Z95.0 Presence of cardiac pacemaker; I49.5 Sick sinus syndrome
CPT/HCPCS: 93010; 93280; 99214; G2211

== ENCOUNTER → 2025-06-04 14:20 | Outpatient (BNVA) | payer OTHER, SELFPAY | PROVIDERS: PCP Internal Medicine; Visit Provider Nurse Practitioner Family | DX: I51.7 Cardiomegaly (principal); I48.92 Unspecified atrial flutter; Z95.0 Presence of cardiac pacemaker; I49.5 Sick sinus syndrome | CPT/HCPCS: 93005; 93280; 99212 ==

== ENCOUNTER → 2025-07-22 23:59 | Outpatient (BNV) | payer OTHER, SELFPAY ==
--- NOTE | 2025-07-25 08:41 | A.OFFVIS_ITS ---
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 Overall normal device function. [id number] Cardiac Device Interrogation, pacemaker Procedure code (CPT) selection complete Assessment & Plan Assessment & Plan (1) Pacemaker: Comment: [employer] dual-chamber pacemaker 03/03/2024 Code(s): Z95.0 - Presence of cardiac pacemaker Category: Medical (2) Atrial flutter with rapid ventricular response: Code(s): I48.92 - Unspecified atrial flutter Category: Medical Plan x Coding Level of Care Code Procedure Only Diagnoses Pacemaker Z95.0 Atrial flutter with rapid ventricular response I48.92 CPT Codes Cardiac Device Check - Cardiac Device 12: [id number] Cardiac Device In [facility], pacemaker ([id number])
== END ==
PROVIDERS: PCP Internal Medicine; Visit Provider Internal Medicine
DX: I48.92 Unspecified atrial flutter (principal); Z95.0 Presence of cardiac pacemaker
CPT/HCPCS: 93294

== ENCOUNTER 2025-09-13 14:28 | Outpatient (AMB) | payer OTHER, SELFPAY ==
--- NOTE | 2025-09-13 14:31 | A.OFFVIS_ITS ---
Vital Signs 09/13/25 14:32 Height 6 ft 2 in Weight 262 lb 5.601 oz BMI 33.7 BP 118/64 Blood Pressure Location Lt brachial Position Sitting Pulse 73 Pulse Source Pulse Oximeter Intake Visit Reasons: 3 mth f/up Graphic Design Intern Required: Yes Graphic Design Intern Name: LEVON [id number] Allergies No Known Allergies (No Known Allergies*) Allergy (Verified 06/04/25 15:23) Medication List - Last Reconciled 09/13/25 by Huber Bill MD apixaban (Eliquis) 5 mg PO BID cholecalciferol (vitamin D3) 125 mcg PO DAILY clonazepam 1 mg PO TID PRN diltiazem HCl CD (Cartia XT) 120 mg PO DAILY hydrochlorothiazide 12.5 mg PO DAILY metoprolol succinate ER 100 mg PO BID morphine ER 60 mg PO BID omeprazole 40 mg PO DAILY oxycodone 30 mg PO Q8H PRN promethazine 25 mg PO Q4-6H PRN sennosides 8.6 mg PO BEDTIME HPI Comments Details: Jan returns for follow-up. To recall, he was seen regarding palpitations and detected to be in atrial flutter with rapid ventricular rate. Then underwent cardioversion, but he developed asystole following the procedure. Admitted to ICU and then was on dopamine drip and eventually underwent permanent pacemaker implantation. Then noted to be back in atrial flutter. We had referred him to electrophysiology. It seems he had the consultation but did not follow through with the ablation. Currently, he states that he feels fine. He has got no cardiac symptoms. He wants no further cardiac procedures. 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) Alcohol intake: never Patient Tobacco Use Status: Never used Tobacco Review of Systems Const Denies weakness ENT Denies dizziness Card Denies chest pain, Denies chest pain with activity, Denies syncope, Denies rapid heart rate, Denies pedal edema, Denies edema, Denies leg edema, Denies lightheadedness, Denies palpitations, Denies dyspnea, Denies dyspnea on exertion and Denies orthopnea Resp Denies cough, Denies dyspnea and Denies dyspnea on exertion GI Denies hematochezia and Denies change in stool character Musc Denies abnormal gait, Denies muscle cramps, Denies muscle weakness, Denies numbness, Denies radiating pain into limb and Denies tingling Neuro Denies abnormal gait, Denies dizziness, Denies syncope, Denies numbness, Denies tingling and Denies weakness Endo Denies palpitations Physical Exam Vital Signs: Last Vital Signs Pulse 73 09/13/25 14:32 BP 118/64 09/13/25 14:32 BMI result Body Mass Index 33.7 Const General: comfortable and no acute distress Orientation/consciousness: patient oriented x3 HEENT Other: Unremarkable Head: Yes normal to inspection Neck Neck: Yes normal visual inspection Chest Chest palpation & inspection: normal inspection of the chest Resp Auscultation: clear to auscultation bilaterally Cardio Palpation: normal PMI Heart sounds: S1 normal heart sound present, S2 normal heart sound present, no gallops, no murmurs and no rubs GI Palpation (GI): Soft to palpation Back/Spine/Pelvis Other: unremarkable Skin General skin exam: no rashes or lesions noted Neuro General: patient oriented x3 Extrem General: Yes normal to inspection Psych Mental Status: mental status grossly normal Office Procedures EKG Details: EKG G probable atrial flutter but could also be atrial fibrillation; rate of 70/Min; intermittent ventricular pacing. [id number], Complete Assessment & Plan Assessment & Plan (1) Atrial flutter: Code(s): I48.92 - Unspecified atrial flutter Category: Medical Plan: On diltiazem/ metoprolol and Eliquis. We discussed about ablation and he absolutely wants no cardiac procedures. Of note, previously underwent cardioversion but back in atrial flutter/possible fibrillation. (2) Sick sinus syndrome: Code(s): I49.5 - Sick sinus syndrome Category: Medical Plan: Status post pacemaker implantation. (3) Atherosclerotic cardiovascular disease: Code(s): I25.10 - Atherosclerotic heart disease of zuni coronary artery without angina pectoris Category: Medical Plan: In the echocardiogram, LVEF 56%. Basal inferolateral akinesis. Per PCP note, a prior echocardiogram from 2018 also had inferior/lateral hypokinesis. In the perfusion imaging, reported likely normal perfusion. Clinically, he has got no angina or other cardiac symptoms. Consider coronary CTA in the future. Plan Discussed with patient using guard chief. He wants absolutely no cardiac procedures and medical therapy only. Coding Level of Care Code Est Pt Level 4 (55715) Complex EM visit Add On G2211 Diagnoses Atrial flutter I48.92 Sick sinus syndrome I49.5 Atherosclerotic cardiovascular disease I25.10 CPT Codes EKG - CPT: 13791-[id number], Complete ([id number])
[2025-09-13 14:32] VITALS: BP 118/64; PULSE 73; BMI 33.7
--- OUTSIDE RECORDS SUMMARY | 2025-09-13 17:53 | XMS_ITS | Encounter Summary ---
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 Machine Operator Name Role Phone Torres Mcguire MD Primary Care Provider [phone]- [phone] Encounter Details Date Type Department Care Team (Late st Contact Info) Description 06/01/2023 Orders Only [facility] MEDICINE [address] [place] [address] Mai Whitney LPN Social History Tobacco Use Types Packs/Day Years Used Date Smoking Tobacco: Never Smokeless Tobacco: Never Alcohol Use Standard Drinks/Week Comments Not Currently 0 (1 standard drink = 0.6 oz pur e alcohol) Sex and Gender Information Value Date Recorded Sex Assigned at Male 08/31/2022 10:15 AM EDT Legal Sex Male 10:15 AM EDT Gender Identity Male 08/31/2022 10:15 AM EDT Sexual Orientation Straight 08/31/2022 10 :15 AM EDT documented as of this encounter Plan of Treatment Not on file documented as of this encounter Visit Diagnoses Not on filedocumented in this encounter Care Teams Gauge And Weigh Machine Operator Relationship Specialty Start Date End Date Torres Mcguire MD [address] [place] [address] PCP - General Internal Medicine 02/23/18 Ismael Bland Consulting Physician Oncology 10/19/23 Tim Howard Consulting Physician Psychiatry 10/19/23 documented as of this encounter
--- OUTSIDE RECORDS SUMMARY | 2025-09-13 17:53 | XMS_ITS | Clinical Summary ---
Author Organization [facility] Address [address] [place] [address] Care Team Providers Care Drapery Supervisor Name Role Phone Torres Mcguire MD Primary Care Provider [phone] [phone] Allergies No known active allergies Medications Medication Sig Dispensed Refills Start Date End Date Status Wqehzcgbwb-Eqzumgs-I affeine (FIORINAL PO) Take 325 mg by [...] age to complete this topic Care Teams Drapery Supervisor Relationship Specialty Start Date End Date Torres Mcguire MD [address] [place], [place] [address] [address] PCP - General Internal Medicine 01/21/23
--- OUTSIDE RECORDS SUMMARY | 2025-09-13 17:53 | XMS_ITS | Encounter Summary ---
Author Organization [employer] Address [address] [facility] 7t [place] [address] Care Team Providers Care Operations Vocational Instructor Name Role Phone Torres Mcguire MD Primary Care Provider [phone] Encounter Details Date Type Department Care Team ([facility] Contact Info) Description 09/07/2024 Orders Only [facility] CHC MED & PEDS [address] [place], [place] [phone] Torres Mcguire MD [address] [place], [place] [phone] Decreased testosterone level (Primary Dx) Social History Tobacco Use Types Packs/Day Years Used Date Smoking Tobacco: Never Smokeless Tobacco: Never Alcohol Use Standard Drinks/Week Comments Not Currently 0 (1 standard drink = 0.6 oz pur e alcohol) Housing Stability Answer Date Recorded What is your housing situation today? I have mary bolanos 01/06/[address] you li ve. Do you have problems with any of the following? None of the above 01/06/2024 Food Insecurity Answer Date Recorded Within the past 12 months, y ou worried that your food would run out before you got money to buy more: Never True 01/06/2024 Within the past 12 months,th e food you bought just didn't last and you didn't have enough money to get more: Never True 05/2024 Transportation Answer Date Recorded In the past 12 months, has l ack of transportation kept you from medical appts, meetings, work or from getting things needed for daily living? No 01/06/2024 Utilities Answer Date Recorded In the past 12 months, has t he electric, gas, oil or water company threatened to shut off services in your home? No 01/06/2024 Sex and Gender Information Value Date Recorded Sex Assigned at Male 08/31/2022 10:15 AM EDT Legal Sex Male 10:15 AM EDT Gender Identity Male 08/31/2022 10:15 AM EDT Sexual Orientation Straight 08/31/2022 10 :15 AM EDT documented as of this encounter Miscellaneous Notes * Result Encounter Note - Torres Mcguire MD - 09/07/2024 9:19 AM EST The most recent Testosterone level is ready. Do we need a new referral for Mr Jan Looney to be seen by Endocrinology? documented in this encounter Plan of Treatment Not on file documented as of this encounter Procedures Procedure Name Priority Date/Time Associated Diagnosis Comments TESTOSTERONE, TOTAL, MALES (ADULT), IA Routine 09/13/2024 6:54 AM EST Decreased testosterone level documented in this encounter Results * (ABNORMAL) Testosterone, Total, males (Adult), IA (09/13/2024 6:54 AM EST) Testosterone, Total 177(A) 250 - 1100 ng/dL [facility] Comment:Men with clinically significant hypogonadalsymptoms and testosterone values repeatedly inthe range of the 200-300 ng/dL or less, maybenefit from testosterone treatment afteradequate risk and benefits counseling.For additional information, please refer tohttp://education.[employer]o.[employer]/faq/SohlmUwtnagcrkhzyKWUXSUYDZ742(This link is being provided for informational/educational purposes only.)This test was developed and its analytical performancecharacteristics have been determined by [employer] [place], [place]. It hasnot been cleared or approved by the U.S. Food and DrugAdministration. This assay has been validated pursuantto the CLIA regulations and is used for clinicalpurposes.THIS TEST WAS PERFORMED AT:[employer]/[id number] [place] [address]ZOFPBSSSATNAM GARCIA MD,PHD Blood Venous blood specimen / Unknown 09/13/2024 6:54 AM EST 09/13/2024 6:54 AM EST Torres Mcguire MD LAB BLOOD ORDERABLES Final Result Performing Organization Address City/State/[facility] Co de Phone Number [facility] [address] [place] [address] [phone] documented in this encounter Visit Diagnoses Diagnosis Decreased testosterone level- Primary documented in this encounter Care Teams Operations Vocational Instructor Relationship Specialty Start Date End Date Torres Mcguire MD [address] [place] [address] PCP - General Internal Medicine 02/23/18 Ismael Bland Consulting Physician Oncology 10/19/23 Tim Howard Consulting Physician Psychiatry 10/19/23 documented as of this encounter
--- OUTSIDE RECORDS SUMMARY | 2025-09-13 17:53 | XMS_ITS | Encounter Summary ---
Author Organization [employer] Address [address] [facility] 7 [place] [address] Care Team Providers Care Account Manager Name Role Phone Torres Mcguire MD Primary Care Provider [phone]- [phone] Reason for Visit * Reason Comments Med Refill Encounter Details Date Type Department Care Team ([facility] st Contact Info) Description 08/09/2023 Refill [facility] CHC MED & PEDS [address] [place], [place] [phone] Reginaldo Edmonds MD [address] [place] [address] Irritant dermatitis Social History Tobacco Use Types Packs/Day Years [...] encounter Miscellaneous Notes * Telephone Encounter - Torres Mcguire MD - 08/10/2023 10:26 AM EDT Risk of Dependence on this potent steroid. Please schedule a follow up appointment with the derm clinic. documented in this encounter Plan of Treatment Not on file documented as of this encounter Visit Diagnoses Diagnosis Irritant dermatitis Contact dermatitis and other eczema, due to unspecified cause documented in this encounter Care Teams Account Manager Relationship Specialty Start Date End Date Torres Mcguire MD [address] [place] [address] PCP - General Internal Medicine 02/23/18 Ismael Bland Consulting Physician Oncology 10/19/23 Tim Howard Consulting Physician Psychiatry 10/19/23 documented as of this encounter
--- OUTSIDE RECORDS SUMMARY | 2025-09-13 17:53 | XMS_ITS | Encounter Summary ---
Author Organization [employer] Address [address] [facility] 7t [place] [address] Care Team Providers Care Dragline Oiler Name Role Phone Torres Mcguire MD Primary Care Provider [phone] Encounter Details Date Type Department Care Team ([facility] Contact Info) Description 03/17/2024 Orders Only [facility] CHC MED & PEDS [address] [place], [place] [phone] Torres Mcguire MD [address] [place], [place] [phone] Decreased testosterone level (Primary Dx) Social History [...] Comments TESTOSTERONE, TOTAL, MALES (ADULT), IA Routine 07/12/2024 10:35 AM EDT Decreased testosterone level PSA, TOTAL Routine 07/12/2024 10:35 AM EDT Decreased testosterone level TESTOSTERONE, TOTAL, MALES (ADULT), IA Routine 04/03/2024 11:21 AM EDT Decreased testosterone level TESTOSTERONE, FREE (DIALYSIS) AND TOTAL,MS Routine 03/21/2024 11:10 AM EDT Decreased testosterone level documented in this encounter Results * (ABNORMAL) Testosterone, Total, males (Adult), IA (07/12/2024 10:35 AM EDT) Testosterone, Total 103(A) 250 - 1100 ng/dL [facility] Comment:Men with clinically significant hypogonadalsymptoms and testosterone values repeatedly inthe range of the 200-300 ng/dL or less, maybenefit from testosterone treatment afteradequate risk and benefits counseling.For additional information, please refer tohttp://education.[employer]ater.[employer]/faq/LjaghCdcobppfwijpMANPZODOE283(This link is being provided for informational/educational purposes only.)This test was developed and its analytical performancecharacteristics have been determined by [employer] [place], [place]. It hasnot been cleared or approved by the U.S. Food and DrugAdministration. This assay has been validated pursuantto the CLIA regulations and is used for clinicalpurposes.THIS TEST WAS PERFORMED AT:[employer]/[facility]UN[facility] HE[facility] [id number] [place] [address]ZOUPXOTSATNAM GARCIA MD,PHD Blood Venous blood specimen / Unknown 07/12/2024 10:35 AM EDT 07/12/2024 1:46 PM EDT us Torres Mcguire MD LAB BLOOD ORDERABLES Final Result Performing Organization Address City/[facility]/ZIP Co de Phone Number [facility] [address] [place] [phone] * PSA,Total (07/12/2024 10:35 AM EDT) Prostate Specific Antigen 0.89 <0.05 - 4.0 ng/mL [facility] Comment:PSA methodology: Carlos Zazueta i ChemiluminescentMicroparticle Immunoassay (CMIA) Blood Venous blood specimen / Unknown 07/12/2024 10:35 AM EDT 07/12/2024 1:46 PM EDT us Torres Mcguire MD LAB BLOOD ORDERABLES Final Result Performing Organization Address [facility] Co de Phone Number [facility] [address] [place] [phone] * (ABNORMAL) Testosterone, Total, males (Adult), IA (04/03/2024 11:21 AM EDT) Testosterone, Total 73(A) 250 - 1100 ng/dL [facility] Comment:Men with clinically significant hypogonadalsymptoms and testosterone values repeatedly inthe range of the 200-300 ng/dL or less, maybenefit from testosterone treatment afteradequate risk and benefits counseling.For additional information, please refer tohttp://education.[employer]/faq/IhuvcEwdmzcgfzsgdCDBHSPINV053(This link is being provided for informational/educational purposes only.)This test was developed and its analytical performancecharacteristics have been determined by [employer] [place], [place]. It hasnot been cleared or approved by the U.S. Food and DrugAdministration. This assay has been validated pursuantto the CLIA regulations and is used for clinicalpurposes.THIS TEST WAS PERFORMED AT:[employer] [id number] [place] [address]AHVOSBASATNAM GARCIA MD,PHD Blood Venous blood specimen / Unknown 04/03/2024 11:21 AM EDT 04/03/2024 2:49 PM EDT us Torres Mcguire MD LAB BLOOD ORDERABLES Final Result [facility] [address] [place] [phone] * (ABNORMAL) Testosterone, Free (Dialysis) And Total, MS (03/21/2024 11:10 AM EDT) Testosterone, Total 151(A) 250 - 1100 ng/dL [facility] Comment:Men with clinically significant hypogonadalsymptoms and testosterone values repeatedly inthe range of the 200-300 ng/dL or less, maybenefit from testosterone treatment afteradequate risk and benefits counseling.For additional information, please refer tohttp://education.[employer]/faq/MiqbdVqpvxpvemhcxLEBKNYXVS686(This link is being provided for informational/educational purposes only.)This test was developed and its analytical performancecharacteristics have been determined by [place]. It hasnot been cleared or approved by the U.S. Food and DrugAdministration. This assay has been validated pursuantto the CLIA regulations and is used for clinicalpurposes. Testosterone, Free 17.2(A) 35.0 - 155.0 pg/mL [facility] Comment:This test was develo ped and its analytical performancecharacteristics have been determined by [employer] [place], [place]. It hasnot been cleared or approved by the U.S. Food and DrugAdministration. This assay has been validated pursuantto the CLIA regulations and is used for clinicalpurposes.THIS TEST WAS PERFORMED AT:[employer]/[facility] [id number] [place] [address]WZLTMVBSATNAM GARCIA MD,PHD Blood Venous blood specimen / Unknown 03/21/2024 11:10 AM EDT 03/21/2024 2:21 PM EDT Torres Mcguire MD LAB BLOOD ORDERABLES Final Result [facility] [address] [place] [phone] documented in this encounter Visit Diagnoses Diagnosis Decreased testosterone level- Primary documented in this encounter Care Teams Dragline Oiler Relationship Specialty Start Date End Date Torres Mcguire MD [address] [place] [address] PCP - General Internal Medicine 02/23/18 Ismael Bland Consulting Physician Oncology 10/19/23 Tim Howard Consulting Physician Psychiatry 10/19/23 documented as of this encounter
--- OUTSIDE RECORDS SUMMARY | 2025-09-13 17:53 | XMS_ITS | Encounter Summary ---
Author Organization [employer] Address [address] [place] [address] 7 [place] [address] Care Team Providers Care Basketball Scout Name Role Phone Torres Mcguire MD Primary Care Provider [phone]- [phone] Reason for Referral * Imaging (Routine) - Closed Specialty Diagnoses / Procedures Referred By Contac t Referred To Contact Radiology Diagnoses SOB (shortness of breath) Procedures CT Chest w/ and w/o Contrast Torres Mcguire MD [address] [place] [address] Phone: tel: fax: [address] Phone: tel: fax: Referral ID Status Reason Start Date Expiration Date Visits Re quested Visits Authorized [id number] Closed 11/25/2023 11/24/2024 1 1 Encounter Details Date Type Department Care Team (Late st Contact Info) Description 11/25/2023 Orders Only [facility] CHC MED & PEDS [address] [place], [place] [phone] Torres Mcguire MD [address] [place], [place] [phone] SOB (shortness of breath) (Primary Dx) Social History Tobacco Use Types [...] as of this encounter Plan of Treatment Scheduled Orders Name Type Priority Associated Diagnoses Orde r Schedule CT Chest w/ and w/o Contrast Imaging Routine SOB (shortness of breath) Expected: 11/25/2023, Expires: 11/25/2024 documented as of this encounter Visit Diagnoses Diagnosis SOB (shortness of breath)- Primary Shortness of breath documented in this encounter Care Teams Basketball Scout Relationship Specialty Start Date End Date Torres Mcguire MD [address] [place] [address] PCP - General Internal Medicine 02/23/18 Ismael Bland Consulting Physician Oncology 10/19/23 Tim Howard Consulting Physician Psychiatry 10/19/23 documented as of this encounter
--- OUTSIDE RECORDS SUMMARY | 2025-09-13 17:53 | XMS_ITS | Encounter Summary ---
Author Organization [employer] Address [address] [facility] 7 [place] [address] Care Team Providers Care Clubhouse Manager Name Role Phone Torres Mcguire MD Primary Care Provider [phone]- [phone] Reason for Visit * Reason Onset Date Comments Med Refill 06/02/2023 Encounter Details Date Type Department Care Team ([facility] st Contact Info) Description 06/02/2023 Telephone [facility] CHC MED & PEDS [address] [place], [place] [phone] Torres Mcguire MD [address] [place] [address] Med Refill Social History Tobacco Use Types Packs/Day Years [...] encounter Miscellaneous Notes * Telephone Encounter - Mai Whitney LPN - 06/02/2023 10:34 AM EDT Med is not pended as unclear if Patient to continue this dose.Please review * Telephone Encounter - Valentine Thompson - 06/02/2023 10:04 AM EDT Tc from pharmacy requesting medication refill on Vitamin D3 125 mcg (5,000 unit) tablet to be a 90 day supply for insurance to cover. documented in this encounter Plan of Treatment Not on file documented as of this encounter Visit Diagnoses Not on filedocumented in this encounter Care Teams Clubhouse Manager Relationship Specialty Start Date End Date Torres Mcguire MD [address] [place] [address] PCP - General Internal Medicine 02/23/18 Ismael Bland Consulting Physician Oncology 10/19/23 Tim Howard Consulting Physician Psychiatry 10/19/23 documented as of this encounter
--- OUTSIDE RECORDS SUMMARY | 2025-09-13 17:53 | XMS_ITS | Encounter Summary ---
Author Organization [employer] Address [address] [facility] 7t [place] [address] Care Team Providers Care Dupligraph Operator Name Role Phone Torres Mcguire MD Primary Care Provider [phone] Encounter Details Date Type Department Care Team ([facility] Contact Info) Description 11/13/2024 Orders Only [facility] [address] [place], [place] [phone] ProviderFunmilayo MD Social History Tobacco Use Types Packs/Day Years [...] Procedure Name Priority Date/Time Associated Diagnosis Comments CTA CHEST WITH CONTRAST; CT SCAN OF THE ABDOMEN AND PELVIS WITH IV Routine 11/02/2024 4:09 PM EST documented in this encounter Results * CTA CHEST WITH CONTRAST; CT SCAN OF THE ABDOMEN AND PELVIS WITH IV (11/02/2024 4:09 PM EST) Anatomical Region Laterality Modality Body, Pelvis, Abdomen Computed T omography us Historical Provider MD FONSECA CT PROCEDURES Final R esult documented in this encounter Visit Diagnoses Not on filedocumented in this encounter Care Teams Dupligraph Operator Relationship Specialty Start Date End Date Torres Mcguire MD [address] [place] [address] PCP - General Internal Medicine 02/23/18 Ismael Bland Consulting Physician Oncology 10/19/23 Tim Howard Consulting Physician Psychiatry 10/19/23 documented as of this encounter
--- OUTSIDE RECORDS SUMMARY | 2025-09-13 17:53 | XMS_ITS | Encounter Summary ---
Author Organization [employer] Address [address] [facility] [address] [address] 7t [place] [address] Care Team Providers Care Metal Work Duct Installer Name Role Phone Torres Mcguire MD Primary Care Provider [phone] Encounter Details Date Type Department Care Team ([facility] st Contact Info) Description 01/11/2025 Orders Only [facility] CHC MED & PEDS [address] [place], [place] [phone] ProviderFunmilayo MD Social History Tobacco Use Types [...] Procedure Name Priority Date/Time Associated Diagnosis Comments HM COLONOSCOPY Routine 01/11/2025 2:31 PM EDT documented in this encounter Results * Hm Colonoscopy (01/11/2025 2:31 PM EDT) Historical Provider HEALTH MAINTENANCE Final Result documented in this encounter Visit Diagnoses Not on filedocumented in this encounter Care Teams Metal Work Duct Installer Relationship Specialty Start Date End Date Torres Mcguire MD [address] [place] [address] PCP - General Internal Medicine 02/23/18 Ismael Bland Consulting Physician Oncology 10/19/23 Tim Howard Consulting Physician Psychiatry 10/19/23 documented as of this encounter
--- OUTSIDE RECORDS SUMMARY | 2025-09-13 17:53 | XMS_ITS | Encounter Summary ---
Author Organization [employer] Address [address] [facility] 7t [place] [address] Care Team Providers Care Sap Treasury Consultant Name Role Phone Torres Mcguire MD Primary Care Provider [phone]- [phone] Reason for Visit * Reason Onset Date Comments triage 02/09/2023 Encounter Details Date Type Department Care Team ([facility] Contact Info) Description 02/09/2023 Telephone [facility] CHC MED & PEDS [address] [place], [place] [phone] Torres Mcguire MD [address] [place] [address] triage Social History Tobacco Use Types Packs/Day [...] 02/09/2023 4:57 PM EDT Triage call with [facility] [place] [id number] Pt reports home care program sent doctor [...] on filedocumented in this encounter Care Teams Sap Treasury Consultant Relationship Specialty Start Date End Date Torres Mcguire MD [address] [place] [address] PCP - General Internal Medicine 02/23/18 Ismael Bland Consulting Physician Oncology 10/19/23 Tim Howrad Consulting Physician Psychiatry 10/19/23 documented as of this encounter
--- OUTSIDE RECORDS SUMMARY | 2025-09-13 17:53 | XMS_ITS | Clinical Summary ---
Author Organization [facility] Address [address] [place] [address] Care Team Providers Care Lard Refiner Name Role Phone Unavailable Primary Care Provider [...] Plan of Treatment Not on file [place] [facility]
--- OUTSIDE RECORDS SUMMARY | 2025-09-13 17:53 | XMS_ITS | Encounter Summary ---
Author Organization [employer] Address [address] [place] [address] [address] Care Team Providers Care Automotive Detailer Name Role Phone Torres Mcguire MD Primary Care Provider [phone]- [phone] Reason for Referral * Medications - Closed Specialty Diagnoses / Procedures Referred By Alessandro walton Referred To Contact Diagnoses Hypogonadism in male Torres Mcguire MD [address] [place] [address] Phone: tel: fax: Referral ID Status Reason Start Date Expiration Date Visits Re quested Visits Authorized [id number] Closed 1 1 Encounter Details Date Type Department Care Team ([facility] Contact Info) Description 04/10/2024 Orders Only [facility] CHC MED & PEDS [address] [place] [address] Torres Mcguire MD [address] [place] [address] Hypogonadism in male (Primary Dx) Social History Tobacco Use Types [...] as of this encounter Visit Diagnoses Diagnosis Hypogonadism in male- Primary documented in this encounter Care Teams Automotive Detailer Relationship Specialty Start Date End Date Torres Mcguire MD [address] [place] [address] PCP - General Internal Medicine 02/23/18 Ismael Bland Consulting Physician Oncology 10/19/23 Tim Howard Consulting Physician Psychiatry 10/19/23 documented as of this encounter
--- OUTSIDE RECORDS SUMMARY | 2025-09-13 17:53 | XMS_ITS | Clinical Summary ---
Author Organization [address] [place] [address] Address [address] [place] [address] Phone Care Team Providers Care Industrial Eng Name Role Phone Torres Mcguire MD Primary Care Provider [phone] Allergies No known active allergies Medications butalbital-as pirin-caffein e (FIORINAL) 50-325-40 mg per capsule Take 325 mg by mouth. As needed Active hydrocortison e (ANUSOL-HC) 2.5 % rectal cream Insert into the rectum 2 (two) times a day. 09/17/20 23 Active Eliquis 5 mg tablet Take 1 [...] 90 capsule 3 05/01/20 25 026 Active polyethylene glycol (MIRALAX) 17 gram packet Take 17 g by mouth 1 (one) time each day. 30 each 05/15/20 25 026 Active morphine (MS CONTIN) 60 mg 12 hr tabletIndicat ions:Rectal cancer (CMS/[facility] V24, CMS/HCC V28) Take 1 tablet (60 mg total) by mouth 2 (two) times a day. Max Daily Amount: 120 mg 60 tablet 08/29/20 25 Active oxyCODONE (ROXICODONE) 30 mg immediate release tabletIndicat ions:Rectal cancer (CMS/HCC V24, CMS/HCC V28) Take 1 tablet (30 mg total) by mouth every 4 (four) hours if needed for severe pain. Partial fill allowed Max Daily Amount: 180 mg 180 tablet 08/29/20 25 Active promethazine (PHENERGAN) 25 mg tablet TAKE 1 TABLET BY MOUTH EVERY 12 HOURS NEEDED FOR NAUSEA 60 tablet 5 09/04/20 25 Active promethazine (PHENERGAN) 25 mg tablet TAKE 1 TABLET BY MOUTH EVERY 12 HOURS NEEDED FOR NAUSEA 60 tablet 5 09/12/20 24 025 Discontinued oxyCODONE (ROXICODONE) 30 mg immediate release tabletIndicat ions:Rectal cancer (CMS/HCC V24, CMS/HCC V28) Take 1 tablet (30 mg total) by mouth every 4 (four) hours if needed for severe pain. Partial fill allowed Max Daily Amount: 180 mg 180 tablet 07/26/20 025 Discontinued(R eorder) morphine (MS CONTIN) 60 mg 12 hr tabletIndicat ions:Rectal cancer ([facility] V24, [facility] V28) Take 1 tablet (60 mg total) by mouth 2 (two) times a day. Max Daily Amount: 120 mg 60 tablet 07/26/20 025 Discontinued(R eorder) Active Problems Problem Noted Date Diagnosed Date Neuropathy due to chemotherapeutic drug ([facility] V24) 04/26/2017 Rectal cancer ([facility] V24, [facility] V28) 017 Encounters Date Type Department Care Team Description 07/26/2025 2:30 PM EDT Office Visit [facility] Hematology Oncology [address] [place] [phone] Ismael Bland MD Rectal cancer ([facility] V24, [facility] V28) from Last 3 Months Immunizations Immunization Administration Dates Next Due Pfizer SARS-CoV-2 COVID-19, mRNA, LNP-S, preservative free 12/05/2020,11/14/2020 Surgical History Surgery Date Site/Laterality Comments APPENDECTOMY PROCEDURE:APPENDECTOMY COLOSTOMY PROCEDURE:COLOSTOMY COLON SURGERY PROCEDURE:COLON SURGERY COLONOSCOPY PROCEDURE:COLONOSCOPY OTHER SURGICAL HISTORY PROCEDURE:HEMORROIDECTOMY Medical History Medical History Date Comments Rectal cancer ([facility] V24, [facility] V28) DX:Rectal cancer (HCC) Colon cancer ([facility] V24, [facility] V28) DX:Colon cancer (HCC) Anemia DX:Anemia Pacemaker Family History Relation Name Status Comments Father Social History Tobacco Use Types Packs/Day Years Used Date Smoking Tobacco: Never Smokeless Tobacco: Never Tobacco Cessation:Counseling Given: Not Answered Alcohol Use Standard Drinks/Week Comments No 0 (1 standard drink = 0.6 oz pur e alcohol) Interpersonal Safety Answer Date Record ed Physical Abuse Unrecognized value 01/11/2025 Verbal Abuse Unrecognized value 01/11/2025 Sex and Gender Information Value Date Recorded Sex Assigned at Male 01/10/2025 2:18 PM EDT Legal Sex Male 2:17 AM EST Gender Identity Male 01/10/2025 2:18 PM EDT Sexual Orientation Straight 01/10/2025 2: 18 PM EDT Obstetrics History Last Filed Vital Signs Vital Sign Reading Time Taken Comments Blood Pressure 121/63 07/26/2025 2:31 PM EDT Pulse 89 07/26/2025 2:31 PM EDT Temperature 36.4 C (97.6 F) 07/26/2025 2:31 PM EDT Respiratory Rate 18 01/11/2025 1:23 PM EDT Oxygen Saturation 96% 07/26/2025 2:31 PM EDT Inhaled Oxygen Concentration - - Weight 122 kg (268 lb) 07/26/2025 2:31 PM EDT Height 188 cm (6' 2 ) 01/11/2025 12:11 PM EDT Body Mass Index 34.41 01/11/2025 12:11 PM EDT Plan of Treatment Upcoming Encounters Date Type Department Care Team (Late st Contact Info) Description 01/24/2026 2:30 PM EDT Office Visit [facility] Hematology Oncology [address] [place] [address] Ismael Bland MD [address] [place] [address] Health Maintenance Due Date Last Done Comments Zoster Vaccines (1 of 2) 1981 Pneumococcal Vaccine: 50+ Years (2 of 2 - PCV) 05/10/2016 05/10/2015 HIV Screening 10/10/2022 Hepatitis C Screening 10/10/2022 Medicare Annual Wellness Visit 10/10/2022 Social Influencers of Health Screening 10/10/2022 Depression Screening 11/01/2024 DTaP,Tdap,and Td Vaccines (2 - Td or Tdap) 03/12/2025 03/12/2015 COVID-19 Vaccine ( season) 2025 10/29/2021, 12/05/2020, 11/14/2020 Influenza Vaccine (#1) 2025 9, 07/28/2018, 08/06/2017, [...] this topic Medical Devices Implanted Type Area Grain Trader Device Identifier Shelf Expiration Date Model / Serial / Lot Cardiac Pacemaker Cardiac Pacemaker Left: Chest Procedures Procedure Name Priority Date/Time Associated Diagnosis Comments EXTERNAL COLONOSCOPY REPORT Routine 05/02/2025 3:04 PM EDT LIPID PANEL Routine 03/05/2021 from Last 3 Months or Most Recently Relevant to Health Maintenance Results * External Colonoscopy Report (05/02/2025 3:04 PM EDT) Anatomical Region Laterality Modality Endoscopy Historical Provider GI~PROCEDURE ORDERABLES F inal Result * Lipid panel (03/05/2021) LDL/HDL Ratio 0 Triglycerides 0 mg/dL Cholesterol 0 mg/dL HDL 0 mg/dL LDL Cholesterol 0 mg/dL Blood Venous blood specimen / Unknown Historical Provider LAB BLOOD ORDERABLES Isabel l Result from Last 3 Months or Most Recently Relevant to Health Maintenance Insurance [employer] MED[employer] Member Subscriber Plan / Payer (Ef fective 2018-Present) Name:JAN HARDING Relation to Subscriber:Self Name:Jan Harding Payer ID:[id number] Group ID:[id number] Type:Not on file Address: [place] [address] [place] [id number] Care Teams Industrial Eng Relationship Specialty Start Date End Date Torres Mcguire MD [address] [place], [place] PCP - General Internal Medicine 01/04/19
--- OUTSIDE RECORDS SUMMARY | 2025-09-13 17:53 | XMS_ITS | Clinical Summary ---
Author Organization [employer] Address [address] [facility] [address] [place] [address] Care Team Providers Care Head Silverman Name Role Phone Torres Mcguire MD Primary Care Provider Allergies No known active allergies Medications * This document contains information received from the source organization and may not represent a complete record from that organization. Elastic Bandages & Supports (Medical Compression Stockings) miscIndications:E darrin of lower extremity Knee high. 15-20 mm/Hg. 1 each 3 Active Incontinence Supply Disposable (PadSORBer Bed Santiago Liners) miscIndications:I rritation of skin of perianal region,Other urinary incontinence To use daily at bedtime 50 each 11 3 Active Blood Pressure kitIndications:El evated BP without diagnosis of hypertension To check the BP daily 1 kit 3 Active promethazine (Phenergan) 25 MG tablet TAKE 1 TABLET BY MOUTH EVERY 12 HOURS NEEDED FOR NAUSEA 3 Active mirtazapine (Remeron) 15 MG tablet TAKE 1 TABLET BY MOUTH AT BEDTIME FOR SLEEP OR MOOD 3 Active DULoxetine (Cymbalta) [address] capsule TAKE 1 CAPSULE BY MOUTH EVERY MORNING FOR MOOD 3 Active hydrocortisone (Anusol-HC) 2.5 % rectal cream APPLY TOPICALLY AROUND ANUS TWICE DAILY 3 Active ibuprofen 800 MG tablet Take 800 mg by mouth every 8 (eight) hours if needed. 3 Active omeprazole (PriLOSEC) [address] capsule Take 1 capsule by mouth Once per day. 3 Active morphine CR (MS Contin) 60 MG 12 hr tablet Take 60 mg by mouth every 8 (eight) hours. 3 Active oxyCODONE (Roxicodone) 30 MG immediate release tablet Take 30 mg by mouth every 8 (eight) hours if needed. 3 Active polyethylene glycol, PEG, 3350 (Miralax) 17 g packet DISSOLVE THE CONTENTS OF 1 PACKET IN LIQUID AND TAKE BY MOUTH EVERY DAY 3 Active Eliquis 5 MG tablet Take 1 tablet by mouth 2 times daily. 4 Active clonazePAM (KlonoPIN) 2 MG tablet Take 0.5 tablets by mouth if needed in the morning, at noon, and at bedtime for anxiety. 4 Active metoprolol succinate XL (Toprol-XL) 50 MG 24 hr tablet Take 1 tablet by mouth Once per day. 4 Active testosterone (AndroGel) 25 MG/2.5GM (1%) gelIndications:Hy pogonadism in male Place 1 packet (25 mg) on the skin Once per day. 2.5 g 4 Active hydroCHLOROthiazi de 12.5 MG tabletIndications :SOB (shortness of breath) TAKE 1 TABLET(12.5 MG) BY MOUTH IN THE MORNING 30 tablet 11 4 Active cholecalciferol (Vitamin D-3) 125 MCG (5000 UT) capsule TAKE ONE CAPSULE BY MOUTH EVERY MORNING 30 capsule 11 5 Active Active Problems Problem Noted Date Diagnosed Date Abnormal electrocardiogram (ECG) (EKG) 3 Assessment & Plan (10/19/2023 2:34 PM EST): Reviewed records from 2014, 2018, he already had abnormal conduction delay and marked inferior and left pre-cordial repolarization disturbance, ECHO did show hypokiness in inferior and left lateral wall in 2018. No cardiology records appreciate on review. 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 PACs. Referral for holter monitor, TTE and cardiology referral. lavs ordered. Recommended to visit ED if he experience chest pains, or any other associated symptoms. Microcytic anemia 03/07/2021 Cervical spondylosis 05/11/2019 Chronic low back pain 08/15/2018 Neuropathy due to chemotherapeutic drug 04/26/20 17 Rectal cancer ([facility]/HCC) 04/26/2017 Decreased testosterone level 03/12/2015 Osteoarthritis 03/12/2015 Depressive disorder 02/27/2015 Encounters Date Type Department Care Team Description 07/23/2025 Telephone [facility] [address] [place] [address] Torres Mcguire MD Left Without Being Seen 07/23/2025 Travel 06/20/2025 Refill [facility] [address] [place] [address] Alisha Grossman MD from Last 3 Months Immunizations Immunization Administration Dates Next Due Influenza injectable quadriv alent IIV4 with preservative 08/28/2019,07/28/2018 Influenza injectable quadriv alent preservative free 08/06/2017,08/07/2016,06/16/2015 Pfizer Covid-19 Vaccine 12+ 12/05/2020, Pneumococcal Polysaccharide PPSV23 05/10/2015 Tdap 03/12/2015 Social History Tobacco Use Types Packs/Day Years Used Date Smoking Tobacco: Never Smokeless Tobacco: Never Tobacco Cessation:Counseling Given: Not Answered Alcohol Use Standard Drinks/Week Comments Not Currently [...] Orientation Straight 08/31/2022 10 :15 AM EDT Last Filed Vital Signs Vital Sign Reading Time Taken Comments Blood Pressure 148/82 07/23/2025 1:57 PM EDT Pulse 110 07/23/2025 1:57 PM EDT Temperature 36.6 C (97.9 F) 07/23/2025 1:57 PM EDT Respiratory Rate 14 07/23/2025 1:57 PM EDT Oxygen Saturation 94% 07/23/2025 1:57 PM EDT Inhaled Oxygen Concentration - - Weight 122 kg (269 lb) 07/23/2025 1:57 PM EDT Height 188 cm (6' 2 ) 07/23/2025 1:57 PM EDT Body Mass Index 34.54 07/23/2025 1:57 PM EDT Plan of Treatment Health Maintenance Due Date Last Done Comments CT Colonography 1962 Depression Screening 1962 FIT DNA/Cologuard 1962 FIT 1962 FOBT 1962 HIV Screening 1962 Sigmoidoscopy 1962 Disability Screening 1962 Alcohol/Substance Use Screening 1974 Hepatitis C Screening 1980 Zoster Vaccines (1 of 2) 2012 Pneumococcal Vaccine: 50+ Years (2 of 2 - PCV) 05/10/2016 05/10/2015 SDOH Screening 01/05/2025 01/06/2024 DTaP/Tdap/Td Vaccines (2 - Td or Tdap) 03/12/2025 03/12/2015 COVID-19 Vaccine ( season) 2025 10/29/2021, 12/05/2020, 11/14/2020 Influenza Vaccine (#1) 2025 9, 07/28/2018, 08/06/2017, Additional history exists Tobacco Screening 07/31/2025 07/31/2024 Lipid Panel 03/05/2026 03/05/2021 Colonoscopy 01/11/2035 01/11/2025 Colorectal Cancer Screening 01/11/2035 RSV Patients and Patients Aged 60 years or older (1 - 1-dose 75+ series) 2037 HIB [...] patient's age to complete this topic Meningococcal Vaccine Aged Out No gonzalo anastasia eligible based on patient's age to complete this topic RSV under 20 months Aged Out No longe r eligible based on patient's age to complete this topic Rotavirus Vaccines Aged Out No longer eligible based on patient's age to complete this topic Procedures Procedure Name Priority Date/Time Associated Diagnosis Comments COLONOSCOPY Routine 01/11/2025 2:31 PM EDT LIPID PANEL, STANDARD Routine 03/05/2021 9:44 AM EDT from Last 3 Months or Most Recently Relevant to Health Maintenance Results * Colonoscopy (01/11/2025 2:31 PM EDT) [facility] Provider MD HEALTH MAINTENANCE Final Result * (ABNORMAL) LIPID PANEL, STANDARD (03/05/2021 9:44 AM EDT) Chol/HDLC Ratio 5.5(H) <5.0 (calc) [facility] Cholesterol, Total 199 <200 mg/dL [facility] HDL Cholesterol 36(L) > OR = 40 mg/dL [facility] LDL Cholesterol 137(H) mg/dL (calc) [facility] Comment: Reference range: <100 Desirable range <100 mg/dL for primary prevention; <70 mg/dL for patients with CHD or diabetic patients with > or = 2 CHD risk factors. LDL-C is now calculated using the Estela calculation, which is a validated novel method providing better accuracy than the Friedewald equation in the estimation of LDL-C. Jan VILLALOBOS et al. JOHNATHAN. 2013;310(19): 3129-6388 (http://education.Off[employer]ISION.com/faq/SYJ703) Non-HDL Cholesterol 163(H) <130 mg/dL (calc) [facility] Comment: For patients with diabetes plus 1 major ASCVD risk factor, treating to a non-HDL-C goal of <100 mg/dL (LDL-C of <70 mg/dL) is considered a therapeutic option. Triglycerides 133 <150 mg/dL [facility] 03/05/2021 9:44 AM EDT us Torres Mcguire MD LAB BLOOD ORDERABLES Final Result [facility] [address] from Last 3 Months or Most Recently Relevant to Health Maintenance Insurance [employer] < [address] [place] [id number] Care Teams Head Silverman Relationship Specialty Start Date End Date Torres Mcguire MD [address] [place] [address] [place] [address] PCP - General Internal Medicine 02/23/18 Ismael Bland Consulting Physician Oncology 10/19/23 Tim Howard Consulting Physician Psychiatry 10/19/23
--- OUTSIDE RECORDS SUMMARY | 2025-09-13 17:53 | XMS_ITS | Encounter Summary ---
Author Organization [employer] Address [address] [facility] [address] [place] [address] Care Team Providers Care Commercial Lines Sales Executive Name Role Phone Torres Mcguire MD Primary Care Provider Encounter Details Date Type Department Care Team ([facility] st Contact Info) Description 11/05/2023 Orders Only [facility] [address] [place], [place] [phone] Torres Mcguire MD [address] [place] [address] Infiltrate of upper lobe of right lung present on imaging study (Primary Dx) Social History Tobacco Use Types [...] as of this encounter Visit Diagnoses Diagnosis Infiltrate of upper lobe of right lung present on imaging study- Primary documented in this encounter Care Teams Commercial Lines Sales Executive Relationship Specialty Start Date End Date Torres Mcguire MD [address] [place] [address] PCP - General Internal Medicine 02/23/18 Ismael Bland Consulting Physician Oncology 10/19/23 Tim Howard Consulting Physician Psychiatry 10/19/23 documented as of this encounter
== END 2025-09-13 14:56 | disposition home or self-care (01) ==
LOC: HO.HCS 14:28
PROVIDERS: PCP Internal Medicine; Visit Provider Internal Medicine
DX: I48.92 Unspecified atrial flutter (principal); I49.5 Sick sinus syndrome; I25.10 Atherosclerotic heart disease of native coronary artery without angina pectoris
CPT/HCPCS: 93010; 99214; G2211

== ENCOUNTER → 2025-09-13 14:28 | Outpatient (BNVA) | payer OTHER, SELFPAY | PROVIDERS: PCP Internal Medicine; Visit Provider Internal Medicine | DX: I48.92 Unspecified atrial flutter (principal); I49.5 Sick sinus syndrome; I25.10 Atherosclerotic heart disease of native coronary artery without angina pectoris; I10 Essential (primary) hypertension | CPT/HCPCS: 93005; 99212 ==